=== PATIENT | female | born 1950 | race Caucasian/White ===

== ENCOUNTER 2016-07-05 10:37 | Inpatient (IN) | payer BC ==
[~2016-07-05] VITALS: Ht 152.4 cm; Wt 83.5 kg
[2016-07-05] MEDS ORDERED: PRD/25 PO (11:33)
[2016-07-05] MEDS ORDERED: ACETCHW7 PO (11:33)
--- NOTE | 2016-07-05 12:03 | EMERGENCY ROOM VISIT NOTE ---
History Report prepared by Samina: Kavin Ott Under the Supervision of: Dr. Pedro Valdez M.D. First contact with patient: 11:49 Chief Complaint: LEG PAIN,LEG INJURY Stated Complaint: LEG PAIN,FALL History of Present Illness The patient is a 65 year old female who presents to the Emergency Room with complaints of worsening swelling of the left lower extremity for the past three days. The leg is also painful and erythematous. The patient spent six hours in a car four days ago. The patient has also been short of breath. The patient has had baseline swelling of her bilateral lower extremities for a while. She has a history of brain cancer. The patient no longer takes most of her medications for cancer except for Prednisone. Source of History: patient Onset: three days Position: leg (left) Quality: other (swelling) Timing: worsening Associated Symptoms: + SOB Review of Systems All systems have been listed, reviewed, and are negative other than those previously mentioned. Please see Additional Medical History Sheet. Past Medical & Surgical Medical Problems: (1) Brain cancer (2) DVT (deep venous thrombosis) Family History Patient reports no known family medical history. Social History Smoking Status: Former Smoker Housing Status: lives with family Current/Historical Medications Scheduled Prednisone (Prednisone), 1 TAB PO DAILY Miscellaneous Medications Acetaminophen (Tylenol), 80 MG PO Allergies Coded Allergies: Naproxen (Verified Allergy, Unknown, hives, 07/05/16) Physical Exam Vital Signs Date Time Temp Pulse Resp B/P Pulse Ox O2 Delivery O2 Flow Rate FiO2 07/05/16 14:39 94 114/83 94 Room Air 07/05/16 12:47 36.9 93 110/80 94 Room Air 07/05/16 10:41 36.7 110 18 116/83 95 Room Air Physical Exam GENERAL: Patient awake, alert, oriented x 3. Patient follows commands. Patient does not appear toxic. Patient is adequately hydrated and well- nourished. SKIN: No erythema, pallor, cyanosis or rash HEENT: Well-healed scar over right side of head, pupils equal, reactive to light and accommodation. LUNGS: Clear to auscultation. No wheezes, no rales, no rhonchi. HEART: No murmurs. No gallops. No rubs ABDOMEN: No masses, no rebound, no hepatomegaly or splenomegaly. Obese, soft, nontender. EXTREMITIES: Bilateral femoral pulses noted. Marked edema of the left leg from the thigh down to the foot, no palpable pedal pulse on the left, slight erythema to the left, not cool to touch. NEUROLOGIC: Cranial nerves II-XII within normal limits. No gross motor sensory function deficits. Medical Decision & Procedures ER Provider Diagnostic Interpretation: X-ray results as stated below per my interpretation and radiologist interpretation. Other radiology results as stated below per my review and radiologist interpretation: CHEST 2 VIEWS ROUTINE CLINICAL HISTORY: Suspected deep venous thrombus. Left leg pain and swelling. COMPARISON STUDY: No previous studies for comparison. FINDINGS: Lung volumes are normal. Linear left basilar opacity is suggestive of atelectasis or scarring. There is mild cardiomegaly without evidence of pulmonary edema. No consolidation is present. IMPRESSION: 1. No acute findings. 2. Mild cardiomegaly. 3. Linear left basilar opacity suggestive of atelectasis. Electronically signed by: Maximiliano Dawn M.D. 07/05/2016 1:16 PM Dictated Date/Time: 07/05/2016 1:15 PM LEFT LOWER EXTREMITY VENOUS DOPPLER CLINICAL HISTORY: Left leg pain and swelling. Suspect deep venous thrombus. COMPARISON STUDY: No previous studies for comparison. TECHNIQUE: Sonography of the deep venous system of the left lower extremity was performed. Compression and augmentation were evaluated. FINDINGS: There is extensive occlusive thrombus within the left common femoral, superficial femoral, popliteal, posterior tibial, peroneal and anterior tibial veins. There is superficial thrombus within the left greater saphenous. The vessels are expanded. IMPRESSION: Extensive deep venous thrombus throughout the left lower extremity. Electronically signed by: Maximiliano Dawn M.D. 07/05/2016 1:56 PM Dictated Date/Time: 07/05/2016 1:55 PM Laboratory Results 07/05/16 12:30 Red Blood Count 3.91, Mean Corpuscular Volume 90.8, Mean Corpuscular Hemoglobin 32.5, Mean Corpuscular Hemoglobin Concent 35.8, Mean Platelet Volume 9.2, Neutrophils (%) (Auto) 90.3, Lymphocytes (%) (Auto) 5.4, Monocytes (%) (Auto) 2.9, Eosinophils (%) (Auto) 0.0, Basophils (%) (Auto) 0.1, Neutrophils # (Auto) 7.48, Lymphocytes # (Auto) 0.45, Monocytes # (Auto) 0.24, Eosinophils # (Auto) 0.00, Basophils # (Auto) 0.01 07/05/16 12:30 Test 07/05/16 12:30 White Blood Count 8.29 K/uL (4.8-10.8) Red Blood Count 3.91 M/uL (4.2-5.4) Hemoglobin 12.7 g/dL (12.0-16.0) Hematocrit 35.5 % (37-47) Mean Corpuscular Volume 90.8 fL (80-100) Mean Corpuscular Hemoglobin 32.5 pg (25-34) Mean Corpuscular Hemoglobin Concent 35.8 g/dl (32-36) Platelet Count 74 K/uL (130-400) Mean Platelet Volume 9.2 fL (7.4-10.4) Neutrophils (%) (Auto) 90.3 % Lymphocytes (%) (Auto) 5.4 % Monocytes (%) (Auto) 2.9 % Eosinophils (%) (Auto) 0.0 % Basophils (%) (Auto) 0.1 % Neutrophils # (Auto) 7.48 K/uL (1.4-6.5) Lymphocytes # (Auto) 0.45 K/uL (1.2-3.4) Monocytes # (Auto) 0.24 K/uL (0.11-0.59) Eosinophils # (Auto) 0.00 K/uL (0-0.5) Basophils # (Auto) 0.01 K/uL (0-0.2) RDW Standard Deviation 53.1 fL (36.4-46.3) RDW Coefficient of Variation 16.7 % (11.5-14.5) Immature Granulocyte % (Auto) 1.3 % Immature Granulocyte # (Auto) 0.11 K/uL (0.00-0.02) Nucleated RBC Absolute Count (auto) 0.03 K/uL (0-0) Nucleated Red Blood Cells % 0.4 % Platelet Estimate DECREASED Prothrombin Time 11.7 SECONDS (9.0-12.0) Prothromb Time International Ratio 1.1 (0.9-1.1) Activated Partial Thromboplast Time 20.9 SECONDS (21.0-31.0) Partial Thromboplastin Ratio 0.8 Anion Gap 10.0 mmol/L (3-11) Est Creatinine Clear Calc Drug Dose 88.9 ml/min Estimated GFR () 113.5 Estimated GFR (Non- 98.0 BUN/Creatinine Ratio 44.2 (10-20) Calcium Level 8.4 mg/dl (8.5-10.1) Total Bilirubin 0.7 mg/dl (0.2-1) Aspartate Amino Transf (AST/SGOT) 27 U/L (15-37) Alanine Aminotransferase (ALT/SGPT) 112 U/L (12-78) Alkaline Phosphatase 57 U/L (45-117) Troponin I 0.137 ng/ml (0-0.045) Total Protein 5.8 gm/dl (6.4-8.2) Albumin 2.6 gm/dl (3.4-5.0) Globulin 3.2 gm/dl (2.5-4.0) Albumin/Globulin Ratio 0.8 (0.9-2) Laboratory results as stated above per my review. Medications Administered Medications (Trade) Dose Ordered Sig/Keyur Route Start Time Stop Time Status Last Admin Dose Admin Heparin Sodium/ Dextrose 1 ea NOW STAT N/A 07/05/16 14:35 07/05/16 14:38 DC 07/05/16 14:59 1 EA Heparin Sodium (Porcine) 4000 unit 4,000 unit ONE ONCE IV 07/05/16 15:00 07/05/16 15:01 DC 07/05/16 14:57 4,000 UNIT Heparin Sodium/ Dextrose (Heparin 25,000 Unit/500ml D5W) 500 ml @ 20 mls/hr Q24H PRN IV 07/05/16 15:00 08/04/16 14:59 07/05/16 14:56 20 MLS/HR ECG Indication: SOB/dyspnea Rate (beats per minute): 93 Rhythm: sinus rhythm Findings: no acute ischemic change, no ectopy ED Course 1152: Past medical records reviewed. The patient was evaluated in room C10. A complete history and physical examination was performed. 1426: Spoke with the patient. She had a brain tumor resection in March 2016. 1429: Discussed the case with Dr. Yu, [facility] Hospitalist. The patient will be evaluated. He recommended placing the patient on Lovenox. 1434: Discussed treatment options with the ED pharmacist. 1435: Heparin Sodium / Dextrose 1 ea. Medical Decision I considered multiple diagnoses including DVT, cellulitis, compartment syndrome , musculoskeletal pain, CHF, arterial occlusion. The patient is here with swelling and pain of her left leg. The patient recently was in a car for several hours driving from [place]. The patient is a prior history of a brain tumor with resection in March 2016. The patient had radiation and chemotherapy. Multiple labs, EKG and imaging were obtained. The patient has extensive clots in her left leg involving multiple veins. The patient's thrombocytopenic. She' s had recent radiation and chemotherapy. The patient's troponin is elevated. The patient needs to be anticoagulated but will need to be done cautiously due to these factors. I discussed care with the hospitalist who will further evaluate the patient and treat her. The patient does not meet criteria for outpatient treatment of a DVT. After discussing therapeutic options with the ED pharmacist, we elected to start the patient on Heparin rather than Lovenox due to the safety characteristics of the latter. Consults Time Called: 1420 Consulting Physician: Nenita Junior Hospitalist Returned Call: [phone]: Discussed the case with [facility] The patient will be evaluated. Impression Primary Impression: Left leg DVT Additional Impressions: Elevated troponin Thrombocytopenia H/O brain tumor Scribe Attestation The scribe's documentation has been prepared under my direction and personally reviewed by me in its entirety. I confirm that the note above accurately reflects all work, treatment, procedures, and medical decision making performed by me. Departure Information Dispostion Being Evaluated By Hospitalist Referrals No Doctor, Assigned (PCP) Patient Instructions My [facility] Problem Qualifiers Primary Impression: Left leg DVT Affected thrombotic vein of extremity: unspecified lower extremity distal vein Chronicity: acute Qualified Codes: I82.4Z2 - Acute embolism and thrombosis of unspecified deep veins of left distal lower extremity
[2016-07-05 12:58] LABS: INR 1.1 (0.9-1.1); PARTIAL THROMBOPLASTIN RATIO 0.8; PROTHROMBIN TIME (PATIENT) 11.7 SECONDS (9.0-12.0)
[2016-07-05 12:59] LABS: BUN/CREATININE RATIO 44.2 (10-20); CALCIUM 8.4 mg/dl (8.5-10.1); CREATININE 0.57 mg/dl (0.60-1.20)
[2016-07-05 13:05] LABS: BASO % 0.1 %; BASO ABS # 0.01 K/uL (0-0.2); COMPLETE YES; HEMATOCRIT 35.5 % (37-47); IG% 1.3 %; LYMPH % 5.4 %; LYMPH ABS # 0.45 K/uL (1.2-3.4); MEAN CELL VOLUME 90.8 fL (80-100); MEAN CORPUSCULAR HEMOGLOBIN 32.5 pg (25-34); MEAN CORPUSCULAR HGB CONC 35.8 g/dl (32-36); MEAN PLATELET VOLUME 9.2 fL (7.4-10.4); MONO % 2.9 %; NEUT % 90.3 %; PLATELET COUNT 74 K/uL (130-400); PLT ESTIMATE DECREASED; RED BLOOD COUNT 3.91 M/uL (4.2-5.4); WHITE BLOOD COUNT 8.29 K/uL (4.8-10.8)
--- NOTE | 2016-07-05 13:18 | DIAGNOSTIC IMAGING REPORT ---
CHEST 2 VIEWS ROUTINE CLINICAL HISTORY: Suspected deep venous thrombus. Left leg pain and swelling. COMPARISON STUDY: No previous studies for comparison. FINDINGS: Lung volumes are normal. Linear left basilar opacity is suggestive of atelectasis or scarring. There is mild cardiomegaly without evidence of pulmonary edema. No consolidation is present. IMPRESSION: 1. No acute findings. 2. Mild cardiomegaly. 3. Linear left basilar opacity suggestive of atelectasis. Electronically signed by: Maximiliano Dawn M.D. 07/05/2016 1:16 PM Dictated Date/Time: 07/05/2016 1:15 PM
[2016-07-05 13:32] LABS: ALB/GLOB RATIO 0.8 (0.9-2)
--- NOTE | 2016-07-05 13:58 | DIAGNOSTIC IMAGING REPORT ---
LEFT LOWER EXTREMITY VENOUS DOPPLER CLINICAL HISTORY: Left leg pain and swelling. Suspect deep venous thrombus. COMPARISON STUDY: No previous studies for comparison. TECHNIQUE: Sonography of the deep venous system of the left lower extremity was performed. Compression and augmentation were evaluated. FINDINGS: There is extensive occlusive thrombus within the left common femoral, superficial femoral, popliteal, posterior tibial, peroneal and anterior tibial veins. There is superficial thrombus within the left greater saphenous. The vessels are expanded. IMPRESSION: Extensive deep venous thrombus throughout the left lower extremity. Electronically signed by: Maximiliano Dawn M.D. 07/05/2016 1:56 PM Dictated Date/Time: 07/05/2016 1:55 PM
[2016-07-05] MEDS ORDERED: HEPARIN SOD 5000 UNIT/0.5 ML CARP IV ONE (15:00)
[2016-07-05] MEDS ORDERED: HEPARIN 25,000 UNIT/500ML D5W 500 ML IV PRN (15:00)
[2016-07-05] MEDS ORDERED: ACETAMINOPHEN 325 MG TAB PO PRN (15:30)
[2016-07-05] MEDS ORDERED: ONDANSETRON INJ 2 MG/ML 2 ML VIAL IV PRN (15:30)
[2016-07-05] MEDS ORDERED: NITROGLYCERIN 0.4 MG SL PER TAB CHARGE SL PRN (15:30)
[2016-07-05 15:33] VITALS: BP 114/83; PULSE 74; TEMP 36.9; O2SAT 96; Ht 152.4 cm; Wt 83.5 kg
--- NOTE | 2016-07-05 15:53 | History and Physical ---
History & Physical Date & Time of Service: Jul 05, 2016 at 15:22 Chief Complaint: Leg Pain,Fall Primary Care Physician: No Doctor, Assigned History of Present Illness Source: patient 65 y/o female with PMHx of Brain Cancer s/p resection who presents to the ED c/ o LLE swelling x 3 days. Pt reports that 3 days ago she noticed LLE swelling. She tried elevating the leg and decreasing salt intake thinking that she may be retaining fluid however her sxs persisted. This morning she noticed erythema to the LLE and decided to seek further evaluation. She denies any pain unless she is up moving around. Pt does mention that 4 days ago she rode in the car for 6 hours. She is from [place] visiting family in [place]. Pt has a history of Brain Cancer s/p tumor resection in March 2016 followed by chemo and radiation. She recently completed her cancer treatments and has a repeat MRI scheduled for next month back home. Pt denies history of blood clots. Pt denies fever/chills, chest pain, palpitations, SOB, abd pain, N/V, bowel or bladder issues, lightheadedness/dizziness. In the ED, pt is tachy on arrival but saturating well on room air. plt count 74. Trop 0.137. LLE US extensive LLE DVT. EKG: NSR with T wave inversions in inferior and anterolateral leads. Pt is stable and will be admitted for further evaluation. Past Medical/Surgical History Medical Problems: (1) Brain cancer Status: Chronic Surgical Problems: (1) H/O brain surgery Permanent Comment: malignant brain tumor resection March 2016 in [facility] Status: Resolved Family History Patient reports no known family medical history. Social History Smoking Status: Former Smoker (50 pack year history; quit 2011) Alcohol Use: none Drug Use: none Occupational Status: retired Allergies Coded Allergies: Naproxen (Verified Allergy, Unknown, hives, 07/05/16) Home Medications Scheduled Prednisone (Prednisone), 1 TAB PO DAILY Miscellaneous Medications Acetaminophen (Tylenol), 80 MG PO Review of Systems Constitutional: No chills, No fatigue, No fever, No sweats, No weakness Eyes: No worsening of vision ENT: No hearing loss Respiratory: No cough, No shortness of breath Cardiovascular: No chest pain, No claudication, No edema, No palpitations Abdomen: No constipation, No diarrhea, No nausea, No pain, No vomiting Musculoskeletal: + swelling (LLE swelling with assoc erythema ), No calf pain Genitourinary - Female: No dysuria Neurologic: No weakness Psychiatric: No depression symptoms Endocrine: No fatigue Hematologic / Lymphatic: No abnormal bleeding/bruising Integumentary: No new/changing skin lesions Physical Exam Vital Signs Date Time Temp Pulse Resp B/P Pulse Ox O2 Delivery O2 Flow Rate FiO2 07/05/16 14:39 94 114/83 94 Room Air 07/05/16 12:47 36.9 93 110/80 94 Room Air 07/05/16 10:41 36.7 110 18 116/83 95 Room Air General Appearance: WD/WN, no apparent distress, + pertinent finding (Pt is sitting up comfotably in bed ) Head: normocephalic, atraumatic Eyes: normal inspection ENT: hearing grossly normal Neck: supple Respiratory/Chest: chest non-tender, lungs clear, normal breath sounds, no respiratory distress Cardiovascular: regular rate, rhythm, no murmur Abdomen/GI: normal bowel sounds, non tender, soft Back: normal inspection Extremities/Musculoskelatal: no calf tenderness, + pertinent finding ( siginificant LLE swelling extending from ankle to thigh with erythema noted; mild tenderness to palpation ) Neurologic/Psych: alert, normal mood/affect, oriented x 3 Skin: normal color, warm/dry Diagnostics Laboratory Results Results Past 24 Hours Test 07/05/16 12:30 Range/Units White Blood Count 8.29 4.8-10.8 K/uL Red Blood Count 3.91 4.2-5.4 M/uL Hemoglobin 12.7 12.0-16.0 g/dL Hematocrit 35.5 37-47 % Mean Corpuscular Volume 90.8 80-100 fL Mean Corpuscular Hemoglobin 32.5 25-34 pg Mean Corpuscular Hemoglobin Concent 35.8 32-36 g/dl Platelet Count 74 130-400 K/uL Mean Platelet Volume 9.2 7.4-10.4 fL Neutrophils (%) (Auto) 90.3 % Lymphocytes (%) (Auto) 5.4 % Monocytes (%) (Auto) 2.9 % Eosinophils (%) (Auto) 0.0 % Basophils (%) (Auto) 0.1 % Neutrophils # (Auto) 7.48 1.4-6.5 K/uL Lymphocytes # (Auto) 0.45 1.2-3.4 K/uL Monocytes # (Auto) 0.24 0.11-0.59 K/uL Eosinophils # (Auto) 0.00 0-0.5 K/uL Basophils # (Auto) 0.01 0-0.2 K/uL RDW Standard Deviation 53.1 36.4-46.3 fL RDW Coefficient of Variation 16.7 11.5-14.5 % Immature Granulocyte % (Auto) 1.3 % Immature Granulocyte # (Auto) 0.11 0.00-0.02 K/uL Nucleated RBC Absolute Count (auto) 0.03 0-0 K/uL Nucleated Red Blood Cells % 0.4 % Platelet Estimate DECREASED Prothrombin Time 11.7 9.0-12.0 SECONDS Prothromb Time International Ratio 1.1 0.9-1.1 Activated Partial Thromboplast Time 20.9 21.0-31.0 SECONDS Partial Thromboplastin Ratio 0.8 Sodium Level 137 136-145 mmol/L Potassium Level 4.0 3.5-5.1 mmol/L Chloride Level 106 98-107 mmol/L Carbon Dioxide Level 21 21-32 mmol/L Anion Gap 10.0 3-11 mmol/L Blood Urea Nitrogen 25 7-18 mg/dl Creatinine 0.57 0.60-1.20 mg/dl Est Creatinine Clear Calc Drug Dose 88.9 ml/min Estimated GFR () 113.5 Estimated GFR (Non- 98.0 BUN/Creatinine Ratio 44.2 10-20 Random Glucose 106 70-99 mg/dl Calcium Level 8.4 8.5-10.1 mg/dl Total Bilirubin 0.7 0.2-1 mg/dl Aspartate Amino Transf (AST/SGOT) 27 15-37 U/L Alanine Aminotransferase (ALT/SGPT) 112 12-78 U/L Alkaline Phosphatase 57 45-117 U/L Troponin I 0.137 0-0.045 ng/ml Total Protein 5.8 6.4-8.2 gm/dl Albumin 2.6 3.4-5.0 gm/dl Globulin 3.2 2.5-4.0 gm/dl Albumin/Globulin Ratio 0.8 0.9-2 Diagnostic Radiology CXR IMPRESSION: 1. No acute findings. 2. Mild cardiomegaly. 3. Linear left basilar opacity suggestive of atelectasis. LLE US IMPRESSION: 1. No acute findings. 2. Mild cardiomegaly. 3. Linear left basilar opacity suggestive of atelectasis. EKG EKG: NSR at 93 bpm with T wave inversions noted in inferior leads and anterolateral leads; no previous EKG available for comparison Impression Assessment and Plan EXTENSIVE ACUTE LLE DVT pt presents with LLE swelling and erythema -admit to telemetry -RFs include malignancy and recent road trip -LLE US + occlusive thrombosis in L common femoral, popliteal, posterior tibial , peroneal and anterior tibial veins -start heparin drip -consult hematology, Dr. Pate -monitor ELEVATED TROPONIN -Initial trop 0.137; continue to monitor with serial Sharita -EKG NSR with T wave inversions in inferior and anterolateral leads; repeat EKG PRN chest pain and in AM -consider cardio consult only if Sharita trend up -pt currently denies acute coronary sxs THROMBOCYTOPENIA -plt count 74; may be related to recent chemotherapy -monitor with daily labs H/O MALIGNANT BRAIN TUMOR -s/p resection in Mar 2016, chemo and radiation -follows with oncologist in [facility] (home) DVT PROPHYLAXIS -heparin drip CODE STATUS -FULL CODE DISPO -Pt seen in collaboration with Dr. Yu. Please see his addendum for further details. Thanks! ATTENDING NOTE Patient seen & examined at bedside. Reviewed above History/Physical and confirmed all the findings in person. Patient was diagnosed with brain tumor (likely Glioblastoma) and was managed with surgical resection followed by radiation & chemotherapy travelled from [place] to [place] and started noticing increasing swelling, redness and pain in left lower extremity. It has been gradually getting worst. Work up shows extensive DVT. Putting risk/benefit ratio together, at this stage , patient does need anti-coagulation. Noted the elevated Troponin although has no cardiac symptoms so will follow the trend with serial Troponin. She has been started on I/V Heparin drip in ED which is being continued and have requested a Hematology consult for further input. Need to monitor Platelet counts as patient id noted to have thrombocytopenia. Explained rea the patient at length. Patient is FULL CODE. DVT Prophylaxis with I/V Heparin. Patient will be followed by Dr. Quintana starting tomorrow AM Royal Yu MD VTE Prophylaxis VTE Risk Assessment Done? Y/N: Yes Risk Level: High
[2016-07-05 16:00] VITALS: O2SAT 94
[2016-07-05 16:08] VITALS: O2SAT 94
[2016-07-05 16:11] VITALS: BP 121/88; PULSE 91; TEMP 36.8; O2SAT 96
[2016-07-05] MEDS ORDERED: INFLUENZA VIRUS QUAD VACCINE 0.5 ML SYR IM. ONE (18:00)
[2016-07-05] MEDS ORDERED: INFLUENZA ADMINISTRATION CHARGE ONE (18:00)
[2016-07-05 19:44] VITALS: BP 113/89; PULSE 96; TEMP 36.8; O2SAT 94
[2016-07-05 22:01] LABS: PARTIAL THROMBOPLASTIN RATIO 1.7
[2016-07-05] MEDS ORDERED: HEPARIN IV BOLUS 2,000 UNIT in SYRINGE 0 ML IV STA (22:29)
[2016-07-05] MEDS: HEPARIN 25,000 UNIT/500ML D5W 500 ML IV PRN (22:52)
[2016-07-05 23:12] VITALS: BP 123/88; PULSE 92; TEMP 36.9; O2SAT 93
[2016-07-06 04:00] VITALS: BP 117/89; PULSE 96; TEMP 36.8; O2SAT 95
[2016-07-06 06:01] LABS: MEAN CELL VOLUME 91.4 fL (80-100); RED BLOOD COUNT 3.94 M/uL (4.2-5.4)
[2016-07-06 06:07] LABS: MEAN PLATELET VOLUME 9.5 fL (7.4-10.4); PLATELET COUNT 83 K/uL (130-400)
[2016-07-06 06:30] LABS: CALCIUM 8.4 mg/dl (8.5-10.1); CREATININE 0.62 mg/dl (0.60-1.20); POTASSIUM 3.9 mmol/L (3.5-5.1)
[2016-07-06 08:23] VITALS: BP 128/87; PULSE 113; TEMP 36.5; O2SAT 96
[2016-07-06 12:21] VITALS: BP 121/90; PULSE 116; TEMP 36.9; O2SAT 95
[2016-07-06] MEDS ORDERED: NURSING VERBAL MED ORDER ONE (12:30)
[2016-07-06] MEDS ORDERED: OPTIRAY 320 IV PRN (14:45)
[2016-07-06] MEDS: BOOST VANILLA PO SCH ×4 (17:00→19:12)
--- NOTE | 2016-07-06 18:00 | Medical Consult ---
Consultation Date of Consultation: Jul 06, 2016. Attending Physician: Keily Quintana M.D. Reason for Consultation: Management of acute extensive left lower extremity DVT in the setting of recent diagnosis and treatment glioblastoma, recent travel from [place] to [place] History of Present Illness Ms. Chopra is new to the consulting hematology service as the patient lives in [place] and is currently here visiting family in [place], arrived here 5 days ago. She is a 65 yr old female with PMHx of probable glioblastoma s/p resection in March 2016 and adjuvant chemotherapy and radiation. Restaging assessment with brain MRI planned for 07/2016. She presented to the ED for LLE swelling x 4 days. She tried conservative measures of elevation and decreasing salt intake, but her symptom persisted and then yesterday morning she developed erythema of the LLE. She presented to [facility] where acute extensive LLE DVT was diagnosed on a Doppler examination; she was then admitted on a heparin drip. She has no prior history of VTE. She has no family history of VTE. Additional history obtained from the patient at bedside. She states she finished concurrent chemoradiation on 06/29/16. Her Temodar, decradron were both stopped that day. She states she then left this past weekend for [place] from her home in [place] to visit family. A day after arrival, she noted progressive edema of left lower extremity (admits had baseline edema of feet bilaterally). Conservative measures as above did not help. She started with erythema and significant pain at rest and with walking of the left leg yesterday. She states her pain is adequately controlled while she is hospitalized here. She does admit dyspnea since yesterday, stating "I breathe heavily." She denies chest pain, palpitations, fever or cough. She admits unsteady gait from prior treatment as well as photophobia, but no vision changes. She does not have headaches per se, but will get twinges of pain on the right side of her head when GBM was resected, site radiated. She admits a good appetite and denies nausea. Past Medical/Surgical History Medical Problems: (1) Elevated troponin Status: Acute (2) H/O brain tumor Status: Acute (3) Left leg DVT Status: Acute (4) Thrombocytopenia Status: Acute Family History Patient reports no known family medical history. Social History Smoking Status: Former Smoker (50 pack year history; quit 2011) Alcohol Use: none Drug Use: none Housing Status: lives with family Occupation Status: retired Allergies Coded Allergies: Naproxen (Verified Allergy, Unknown, hives, 07/05/16) Current Inpatient Medications Current Inpatient Medications Medications (Trade) Dose Ordered Sig/Keyur Route Start Time Stop Time Status Last Admin Dose Admin Acetaminophen (Tylenol Tab) 650 mg Q4H PRN PO 07/05/16 15:30 08/04/16 15:29 Ondansetron HCl (Zofran Inj) 4 mg Q6H PRN IV 07/05/16 15:30 08/04/16 15:29 Nitroglycerin 0.4 mg 0.4 mg UD PRN SL 07/05/16 15:30 08/04/16 15:29 Heparin Sodium/ Dextrose (Heparin 25,000 Unit/500ml D5W) 500 ml @ 22 mls/hr [id number] PRN IV 07/05/16 16:00 08/04/16 15:59 07/05/16 22:52 22 MLS/HR Review of Systems Constitutional: No chills, No fever, No sweats Eyes: + problem reported (photophobia), No worsening of vision Respiratory: + shortness of breath, No cough, No sputum, No wheezing Cardiovascular: No chest pain, No palpitations Abdomen: No constipation, No diarrhea, No nausea, No pain, No vomiting Neurologic: + balance problems, No vertigo Hematologic / Lymphatic: + clotting problems Physical Exam Date Time Temp Pulse Resp B/P Pulse Ox O2 Delivery O2 Flow Rate FiO2 07/06/16 08:00 Room Air 07/06/16 04:00 Room Air 07/06/16 04:00 36.8 96 22 117/89 95 Room Air 07/05/16 23:59 Room Air 07/05/16 23:12 36.9 92 24 123/88 93 Room Air 07/05/16 19:44 36.8 96 24 113/89 94 Room Air 07/05/16 19:41 Room Air 07/05/16 16:11 36.8 91 20 121/88 96 Room Air 07/05/16 16:08 36.9 94 18 130/92 94 07/05/16 16:00 94 Room Air 07/05/16 15:40 94 130/92 94 Room Air 07/05/16 15:33 36.9 74 18 114/83 96 Room Air 07/05/16 14:39 94 114/83 94 Room Air 07/05/16 12:47 36.9 93 110/80 94 Room Air 07/05/16 10:41 36.7 110 18 116/83 95 Room Air General Appearance: WD/WN, no apparent distress Eyes: normal inspection, EOMI ENT: hearing grossly normal Respiratory/Chest: lungs clear, normal breath sounds, no respiratory distress, no accessory muscle use Cardiovascular: + tachycardia Abdomen/GI: normal bowel sounds, non tender, soft, no organomegaly Extremities/Musculoskelatal: + pertinent finding (edema of left lower extremity from foot to thigh, mild erythema, pain to palpation; RLE without edema or erythema) Neurologic/Psych: alert, oriented x 3 Skin: warm/dry, no rash Laboratory Results 07/05/16 12:30 Red Blood Count 3.91, Mean Corpuscular Volume 90.8, Mean Corpuscular Hemoglobin 32.5, Mean Corpuscular Hemoglobin Concent 35.8, Mean Platelet Volume 9.2, Neutrophils (%) (Auto) 90.3, Lymphocytes (%) (Auto) 5.4, Monocytes (%) (Auto) 2.9, Eosinophils (%) (Auto) 0.0, Basophils (%) (Auto) 0.1, Neutrophils # (Auto) 7.48, Lymphocytes # (Auto) 0.45, Monocytes # (Auto) 0.24, Eosinophils # (Auto) 0.00, Basophils # (Auto) 0.01 07/06/16 05:54 07/05/16 12:30 07/06/16 05:54 Test 07/05/16 12:30 07/05/16 18:30 07/05/16 21:22 07/06/16 00:30 White Blood Count 8.29 K/uL (4.8-10.8) Red Blood Count 3.91 M/uL (4.2-5.4) Hemoglobin 12.7 g/dL (12.0-16.0) Hematocrit 35.5 % (37-47) Mean Corpuscular Volume 90.8 fL (80-100) Mean Corpuscular Hemoglobin 32.5 pg (25-34) Mean Corpuscular Hemoglobin Concent 35.8 g/dl (32-36) Platelet Count 74 K/uL (130-400) Mean Platelet Volume 9.2 fL (7.4-10.4) Neutrophils (%) (Auto) 90.3 % Lymphocytes (%) (Auto) 5.4 % Monocytes (%) (Auto) 2.9 % Eosinophils (%) (Auto) 0.0 % Basophils (%) (Auto) 0.1 % Neutrophils # (Auto) 7.48 K/uL (1.4-6.5) Lymphocytes # (Auto) 0.45 K/uL (1.2-3.4) Monocytes # (Auto) 0.24 K/uL (0.11-0.59) Eosinophils # (Auto) 0.00 K/uL (0-0.5) Basophils # (Auto) 0.01 K/uL (0-0.2) RDW Standard Deviation 53.1 fL (36.4-46.3) RDW Coefficient of Variation 16.7 % (11.5-14.5) Immature Granulocyte % (Auto) 1.3 % Immature Granulocyte # (Auto) 0.11 K/uL (0.00-0.02) Nucleated RBC Absolute Count (auto) 0.03 K/uL (0-0) Nucleated Red Blood Cells % 0.4 % Platelet Estimate DECREASED Prothrombin Time 11.7 SECONDS (9.0-12.0) Prothromb Time International Ratio 1.1 (0.9-1.1) Activated Partial Thromboplast Time 20.9 SECONDS (21.0-31.0) 42.9 SECONDS (21.0-31.0) Partial Thromboplastin Ratio 0.8 1.7 Anion Gap 10.0 mmol/L (3-11) Est Creatinine Clear Calc Drug Dose 88.9 ml/min Estimated GFR () 113.5 Estimated GFR (Non- 98.0 BUN/Creatinine Ratio 44.2 (10-20) Calcium Level 8.4 mg/dl (8.5-10.1) Total Bilirubin 0.7 mg/dl (0.2-1) Aspartate Amino Transf (AST/SGOT) 27 U/L (15-37) Alanine Aminotransferase (ALT/SGPT) 112 U/L (12-78) Alkaline Phosphatase 57 U/L (45-117) Troponin I 0.137 ng/ml (0-0.045) 0.111 ng/ml (0-0.045) Total Protein 5.8 gm/dl (6.4-8.2) Albumin 2.6 gm/dl (3.4-5.0) Globulin 3.2 gm/dl (2.5-4.0) Albumin/Globulin Ratio 0.8 (0.9-2) Creatine Kinase MB 2.6 ng/ml (0.5-3.6) Creatine Kinase MB Ratio (0-3.0) (0-3.0) Test 07/06/16 00:37 07/06/16 05:54 Creatine Kinase MB 2.1 ng/ml (0.5-3.6) Troponin I 0.116 ng/ml (0-0.045) Red Blood Count 3.94 M/uL (4.2-5.4) Mean Corpuscular Volume 91.4 fL (80-100) Mean Corpuscular Hemoglobin 32.0 pg (25-34) Mean Corpuscular Hemoglobin Concent 35.0 g/dl (32-36) RDW Standard Deviation 54.0 fL (36.4-46.3) RDW Coefficient of Variation 17.0 % (11.5-14.5) Mean Platelet Volume 9.5 fL (7.4-10.4) Activated Partial Thromboplast Time 51.3 SECONDS (21.0-31.0) Partial Thromboplastin Ratio 2.0 Anion Gap 10.0 mmol/L (3-11) Est Creatinine Clear Calc Drug Dose 81.8 ml/min Estimated GFR () 110.4 Estimated GFR (Non- 95.3 BUN/Creatinine Ratio 32.0 (10-20) Calcium Level 8.4 mg/dl (8.5-10.1) Left lower extremity venous Doppler from 07/05/2016: Extensive occlusive thrombus within the left common femoral, superficial femoral, popliteal, posterior tibial, peroneal and anterior tibial veins. Superficial thrombus within the left greater saphenous. Vessels are expanded. Chest x-ray from 07/05/2016: Linear left basilar opacities suggestive of atelectasis or scarring. Mild cardiomegaly without evidence of pulmonary edema. No consolidation present. Assessment & Plan (1) Left leg DVT Status: Acute Assessment & Plan: See attending note below for plan. Dr. Quintana was called with recommendation to proceed with CTA, CT brain w/ and w/o contrast, check B12 , folate today. (2) Thrombocytopenia Status: Acute Assessment & Plan: See attending note below for plan. (3) Brain cancer Status: Chronic Assessment & Plan: See attending note below for plan. Attending note - patient seen and examined and discussed with Arlyn Chavira. Please see her note for details 65 year old female with right frontal GBM initially diagnosed in 03/2016 when she presented with slurred speech and headahces. She is s/p craniotomy/ resection of right frontal lobe lesion 04/13/16. She underwent postoperative radiation therapy concurrent with temodar. She completed treatment on 06/29/16. She lives in [place] but traveled to [place] to visit her family. She states that she usually ambulate with a walker at home but has been tired since RT/temodar. She states that she has been resting alot. She traveled as passenger in a car for 5 and a half to 6 hrs - she states that she was lying down the entire journey and never got out of car or walked around. She states that she noticed significant edema of her left lower extremity and a nonproductive cough and shortness of breath for 4 days. She darrell any chest pain or pleuritic pain or dizziness or headache. She deneis any bleeding or bruising symptoms. She denies any trauma to her leg. She denies any FH of blood clots. Vitals BP 121/90 HR 116 R 20 T 36.9 O2 SAT 95% Gen: well developed female, awake and alert, NAD HEENT: Anicteric, no pallor, well healed scar on right c/p craniotomy Neck:no adenopathy Lungs: CTAB no wheezes or rales or rhonchi CV: S1 S2 Regular, tachycardic at 112 Abd: bowel sounds present soft NT/ND, no guarding or rebounds Ext: +LLE edema, no edema on right Neuro: alert and oriented x 3, grossly no focal finding Skin: no erythema or ecchymoses Venous doppler: extensive DVT in the left common femoral superficial femoral, posterior tibial, peroneal and anterior tibial veins. There is superficial thrombus within the left greater saphenous. Labs: reviewed Impression: 65 year old female with GBM s/p craniotomy in March 2016 and s/p radiation with concurrent temodar completed 1 week ago, now admitted with LLE DVT after long car ride/prolonged immobility. DVT: Agree with heparin protocol with close monitoring of the aPTT and Monitor closely for any bleeding symptoms SOB: check CT chest if can be done when you do the MRI brain. Recommend obtain pulmonary evaluation as well Thrombocytpenia: may be from consumption due to the venous thrombosis. She had recent treatment with temodar/RT but her platelet count per note from her title lawyer recent CBC from 06/26/16 was normal at 277,000. Check B12 folate. Monitor CBC with diff. Platelet count improved today. No diff was done on today's CBC but smear on 07/05/16 reviewed - rare spherocyte rare very rare fragmented cell -1 seen. Her hemoglobin/hematocrit is stable. GBM: recommend check CT scan head with and without contrast. Recommend obtain neurosurgery input. When platelet count is >100,000 and if ok from neurosurgery standpoint at that time, we can transition to lovenox but she would need monitoring with the anticoagulation clinic until she return to [place], and close monitoring of her CBC. I spoke with her title lawyer/oncologist Dr Izquierdo and he agreed with heparin protocol and eventual transition to lovenox. Patient will need to follow up with him upon discharge when she returns to [place] as well. Thank you for allowing us participate in the care of this patient. Please call if questions.
--- NOTE | 2016-07-06 18:22 | DIAGNOSTIC IMAGING REPORT ---
CT SCAN OF THE BRAIN COMBO CLINICAL HISTORY: Brain tumor status post resection. Tumor type and resection date not provided. COMPARISON STUDY: No priors. TECHNIQUE: Axial CT scan of the brain is performed from the vertex to the skull base before and following the IV administration of 116 cc of Optiray 320. Note that interpretation is significantly suboptimal without prior studies for comparison. FINDINGS: Brain parenchyma: There are postoperative changes from right frontal craniotomy with encephalomalacia in the right frontal lobe. This is likely related to the reported history of tumor resection. The resection cavity appears to communicate with the right lateral ventricle. Heterogeneous/minimally complex material is noted within the resection cavity. There is a somewhat hyperdense nodular structure seen along the resection margin on axial image #13 of the unenhanced series which may represent trace hemorrhage. Dural thickening deep to the craniotomy site is likely on a postoperative basis. There is a thin rim of slightly right peripheral enhancement identified along the posterior and medial aspect of the resection cavity on the postcontrast images. This measures up to 4 mm in thickness. There is a questionable remote additional 3 mm focus of enhancement identified in the high right parietal lobe on image #20. There are age-related involutional changes noting mild subcortical and periventricular microangiopathic change. There is no midline shift or evidence of acute territorial ischemia by CT criteria. No extra-axial fluid collection is seen. Ventricles, sulci, cisterns: Prominent secondary to involutional change. Intracranial vasculature: There is minimal atherosclerotic calcification of the cavernous carotid arteries. Calvarium: There are postoperative changes from right frontal craniotomy. No destructive calvarial lesion is seen. Sinuses and mastoids: The visualized paranasal sinuses are clear. The mastoid air cells are well pneumatized. Orbits: The bony orbits are grossly intact. IMPRESSION: 1. There is no evidence of acute territorial ischemia by CT criteria. No midline shift is seen. 2. There are postoperative changes from right frontal craniotomy with associated right frontal encephalomalacia consistent with reported history of tumor resection. 3. There is minimally complex material/debris within the resection cavity, and a 1.5 cm hyperdense nodular focus along the medial border. This may represent trace and age indeterminant hemorrhage/blood products. 4. There is a thin rim of slightly irregular enhancement identified along the resection border, greatest posteriorly and medially. Although this could simply be related to previous surgery/postoperative change, recurrent/residual neoplasm would be impossible to exclude. Correlated with the patient's prior outside imaging examinations. 5. Question an additional 3 mm remote focus of enhancement in the high right parietal lobe. 6. Mild dural thickening deep to the craniotomy site is likely on a postoperative basis. Electronically signed by: Abram Guzman M.D. 07/06/2016 6:20 PM Dictated Date/Time: 07/06/2016 6:09 PM
[2016-07-06] MEDS: HEPARIN 25,000 UNIT/500ML D5W 500 ML IV PRN (18:45)
--- NOTE | 2016-07-06 18:51 | DIAGNOSTIC IMAGING REPORT ---
CT ANGIOGRAM OF THE CHEST CLINICAL HISTORY: Dyspnea. Atypical chest pain. COMPARISON STUDY: Chest radiograph dated 07/05/2016. TECHNIQUE: Following the IV administration of 116 cc of Optiray 320, CT angiogram of the chest was performed from the upper abdomen to the thoracic inlet utilizing the pulmonary embolus protocol. Images are reviewed in the axial, sagittal, and coronal planes. 3-D MIPS images are created and assessed. IV contrast was administered without complication. The examination is significantly degraded by motion artifact. CT DOSE: 1706.07 mGy.cm FINDINGS: Thyroid: Imaged portions of the thyroid gland are normal in size and attenuation. Thoracic aorta: There is mild atherosclerotic calcification of the thoracic aorta, which is normal in caliber and demonstrates standard 3-vessel arch anatomy. No aneurysm or dissection is seen. Pulmonary vasculature: The pulmonary trunk is mildly dilated measuring 3.6 cm in diameter. This suggests pulmonary artery hypertension. Extensive bilateral pulmonary emboli are identified. There is thrombus within the mid right main pulmonary artery extending into the right upper, right middle, and right lower lobar branches. This extends peripherally into segmental and subsegmental branches. There is pulmonary embolus within the distal left main pulmonary artery. This extends into the left upper and left lower lobar branches into the segmental and subsegmental levels. Heart: The heart is mildly enlarged and without pericardial effusion. Lungs and pleural spaces: Evaluation of the lung parenchyma is degraded by motion artifact. Emphysema is noted. There is dependent atelectasis. No airspace consolidation is seen typical for pneumonia. No pleural effusion is identified. There is a 4 mm right apical pulmonary nodule identified on image #245. A calcified granuloma is noted at the left lung base. The trachea and central airways appear clear. Mediastinum: There is no mediastinal lymphadenopathy. Soco: Clear. Axillae: There is no axillary lymphadenopathy. Upper abdomen: The visualized renal parenchyma demonstrates cortical atrophy. A 1.3 cm cyst is partially imaged in the right kidney. A tiny hiatal hernia is observed. Calcified granulomas are noted in the spleen. There is glandular atrophy of the partially imaged pancreas. Skeletal structures: The skeletal structures are osteopenic. No lytic or blastic bony lesions are seen. Arthritic change is seen in the shoulders. A hemangioma is noted in the upper thoracic spine. IMPRESSION: 1. Motion degraded examination. 2. Extensive bilateral pulmonary emboli as above. 3. Cardiomegaly. 4. Emphysema. 5. There is no airspace consolidation or pleural effusion. 6. There is an indeterminant 4 mm right apical pulmonary nodule. This can be followed as per the Fleischner criteria. See below. 7. Additional changes as above. Please refer to below summary of Fleischner criteria recommendations for follow-up of incidental CT nodules (Carlotta Reyes, Guidelines for management of small pulmonary nodules detected on CT scans: A statement from the Fleischner Society, Radiology 237: [phone].) Low Risk Patient: Minimal or no smoking or other known risk factors for malignancy <=4 mm: No follow-up needed. >4-6 mm: Initial follow-up CT at 12 months; if unchanged, no further follow-up. >6-8 mm: Initial follow-up CT at 6-12 months then at 18-24 months if no change. >8 mm: Follow-up CT at \R\3, 9, 24 months, or PET and/or biopsy. High Risk Patient: History of smoking or other known risk factors <=4 mm: Follow-up at 12 months; if unchanged, no further follow-up. >4-6 mm: Initial follow-up CT at 6-12 months then at 18-24 months if no change. >6-8 mm: Initial follow-up CT at 3-6 months then at 9-12 and 24 months if no change. >8 mm: Same as low risk patient. Note: Nodule size measured as average of length and width. Ground glass or partly solid nodules may require longer follow-up to exclude indolent adenocarcinoma. Electronically signed by: bAram Guzman M.D. 07/06/2016 6:49 PM Dictated Date/Time: 07/06/2016 6:40 PM
[2016-07-06 19:22] VITALS: BP 123/82; PULSE 108; TEMP 36.5; O2SAT 95
[2016-07-06] MEDS ORDERED: [UNRECOGNIZED DRUG - CODE] IV (20:45)
--- NOTE | 2016-07-06 20:49 | Discharge Instructions ---
Discharge Instructions Admission Reason for Admission: DVT Discharge Discharge Diagnosis / Problem: EXTENSIVE BILATERAL PULMONARY EMBOLI/LOWER EXT DVT /INTRA CRANIAL TUMOR Discharge Goals Goal(s): Improve disease control Activity Recommendations Activity Limitations: as noted below (BED REST TILL EVALUATED BY PHYSICIAN ) . Instructions / Follow-Up Instructions / Follow-Up TRANSFERRED TO [facility], ICU ACCEPTING PHYSICIAN DR AMARIS LAMB Current Hospital Diet Patient's current hospital diet: Regular Diet Discharge Diet Recommended Diet: Regular Diet Pending Studies Studies pending at discharge: yes ( PER ICU IN [facility], WILL NEED IVC FILTER PLACEMENT ) List of pending studies: IVF FILTER PLACEMENT / ECHO ICU MONITORING NEUROSURGERY EVALUATION Medical Emergencies . Who to Call and When: Medical Emergencies: If at any time you feel your situation is an emergency, please call 911 immediately. . Non-Emergent Contact Non-Emergency issues call your: Hospital Doctor . . "Provider Documentation" section prepared by Keily Quintana. VTE Core Measure Inpt VTE Proph given/why not?: Unfractionated heparin SQ (UNFRACTIONATED HEPARIN IV ), Other Anticoagulation [place] Drug Monitoring Program Search Results: no issues identified
--- NOTE | 2016-07-06 21:35 | Progress Note ---
Internal Med Progress Note Date of Service: Jul 06, 2016. Provider Documentation: SUBJECTIVE: pt denies of any feeling of shortness of breath of feeling of chest heaviness remains tachycardic BP in 120/70 no hypoxia -discussed the finding of CT head and CTA of chest with patient and family members -Brothers /daughter in Law /nephew present at bedside Given the complex nature of her medical condition -Extensive bilat PE with dilated pulmonary trunk 3.6 cm in diameter -suggestive of pulmonary HTN , extensive bilateral emboli /thrombus with in the mid right main pulmonary artery extending into rt upper , rt middle , and rt lower Lobar branches there is PE in distal left main pulm artery , extends into the left upper and left lower branches into segmental and subsegmental levels pt will need to be transferred to Tertiary care -[facility] for further care D/w ICU [place] -accepted in ICU -accepting Vending Supervisor -Dr Dickson OBJECTIVE: Vital Signs-as noted below Exam: General-chronically ill appearing , no apparent distress HEAD: well healed rt craniotomy scar Eyes-sclera non icteric , PERRLA/EOMI ENT-moist oral mucosa , Neck-no tracheal deviation Lungs-diminished, no rales or wheeze Heart-regular , Tachycardic Abdomen-soft, non tender Extremities-left lower ext edema extending to upper thigh , + tenderness , normal exam of rt lower ext Neuro-no focal neurological deficit Lab data as noted below. ASSESSMENT & PLAN: LEFT LOWER EXT EXTENSIVE DVT : pt is visiting family form [place] noted significant swelling of left lower extremity Lower ext USG: FINDINGS: There is extensive occlusive thrombus within the left common femoral, superficial femoral, popliteal, posterior tibial, peroneal and anterior tibial veins. There is superficial thrombus within the left greater saphenous. The vessels are expanded. pt started on IV heparin wt based protocol given extension of DVT /hx of malignancy /Bilat PE -will need IVC filter placement BILATERAL EXTENSIVE PE : CTA of chest : Extensive bilat PE with dilated pulmonary trunk 3.6 cm in diameter -suggestive of pulmonary HTN , extensive bilateral emboli /thrombus with in the mid right main pulmonary artery extending into rt upper , rt middle , and rt lower Lobar branches there is PE in distal left main pulm artery , extends into the left upper and left lower branches into segmental and subsegmental levels cardiomegaly without pericardial effusion ECHO ordered pt remains tachycardic pt will need continued uninterrupted anticoagulation with IV heparin will need IVC filter placement for further progression of lower ext DVT to lungs Heme onc consulted for anticoagulation recommendation appreciate input form Dr Pate- ELEVATED TROPONIN -trop 0.137-> 0.11-0.11 -EKG NSR with marked T wave inversions in inferior and anterolateral leads; possible due to severe PE burden leading to cardiac strain -ECHO ordered anticoagulation with IV Heparin THROMBOCYTOPENIA -plt count 74-> 82 appreciate input form Heme /Onc Thrombocytopenia: may be from consumption due to the extensive venous thrombosis. pt also had recent treatment with Temodar/RT platelet count per note from her laser set up operator - CBC from 06/26/16 was normal at 277,000. CBC but smear on 07/05/16 reviewed - rare spherocyte rare very rare fragmented cell -1 seen. Her hemoglobin/hematocrit is stable. pt will need to continue with IV heparin need to be transitioned to therapeutic Lovenox once Platelet count > 100 K , no bleeding risk will close monitoring of apTT with anticoagulation clinic before return to [place], [place] H/O MALIGNANT BRAIN TUMOR right frontal GBM initially diagnosed in 03/2016 when she presented with slurred speech and headahces. She is s/p craniotomy/resection of right frontal lobe lesion 04/13/16. S he underwent postoperative radiation therapy concurrent with temodar. She completed treatment on 06/29/16. records obtained form Oncology Dr Izquierdo in [place] CT head w/out contrast shows : 1. There are postoperative changes from right frontal craniotomy with associated right frontal encephalomalacia consistent with reported history of tumor resection. 2. There is minimally complex material/debris within the resection cavity, and a 1.5 cm hyperdense nodular focus along the medial border. This may represent trace and age indeterminant hemorrhage/blood products. 3. There is a thin rim of slightly irregular enhancement identified along the resection border, greatest posteriorly and medially. Although this could simply be related to previous surgery/postoperative change, recurrent/residual neoplasm would be impossible to exclude. Correlated with the patient's prior outside imaging examinations. given the active malignancy /residual- intracranial clot -pt remains high risk for intracranial bleed with active anticoagulation [facility] at present does not have any Neurosurgery service D/w Heme onc Dr Pate -pt should be transferred to Tertiary care for further management pt and family updated , in agreement with transfer Pt transferred to [facility] flighted accepted in ICU -accepting linen room houseperson Dr Dickson FULL CODE DVT PROPHYLAXIS IV Heparin DISPOSITION Transfer to [facility] today accepted in ICU for critical care Accepting Physician /Vending Supervisor Dr Dickson Vital Signs: Date Time Temp Pulse Resp B/P Pulse Ox O2 Delivery O2 Flow Rate FiO2 07/06/16 20:00 Room Air 07/06/16 19:22 36.5 108 20 123/82 95 Room Air 07/06/16 16:00 Room Air 07/06/16 12:21 36.9 116 20 121/90 95 Room Air 07/06/16 12:00 Room Air 07/06/16 08:23 36.5 113 20 128/87 96 Room Air 07/06/16 08:00 Room Air 07/06/16 04:00 Room Air 07/06/16 04:00 36.8 96 22 117/89 95 Room Air 07/05/16 23:59 Room Air 07/05/16 23:12 36.9 92 24 123/88 93 Room Air Lab Results: Results Past 24 Hours Test 07/06/16 00:30 07/06/16 00:37 07/06/16 05:54 Range/Units Creatine Kinase MB Ratio 0-3.0 Creatine Kinase MB 2.1 0.5-3.6 ng/ml Troponin I 0.116 0-0.045 ng/ml White Blood Count 6.50 4.8-10.8 K/uL Red Blood Count 3.94 4.2-5.4 M/uL Hemoglobin 12.6 12.0-16.0 g/dL Hematocrit 36.0 37-47 % Mean Corpuscular Volume 91.4 80-100 fL Mean Corpuscular Hemoglobin 32.0 25-34 pg Mean Corpuscular Hemoglobin Concent 35.0 32-36 g/dl RDW Standard Deviation 54.0 36.4-46.3 fL RDW Coefficient of Variation 17.0 11.5-14.5 % Platelet Count 83 130-400 K/uL Mean Platelet Volume 9.5 7.4-10.4 fL Activated Partial Thromboplast Time 51.3 21.0-31.0 SECONDS Partial Thromboplastin Ratio 2.0 Sodium Level 139 136-145 mmol/L Potassium Level 3.9 3.5-5.1 mmol/L Chloride Level 103 98-107 mmol/L Carbon Dioxide Level 26 21-32 mmol/L Anion Gap 10.0 3-11 mmol/L Blood Urea Nitrogen 20 7-18 mg/dl Creatinine 0.62 0.60-1.20 mg/dl Est Creatinine Clear Calc Drug Dose 81.8 ml/min Estimated GFR () 110.4 Estimated GFR (Non- 95.3 BUN/Creatinine Ratio 32.0 10-20 Random Glucose 87 70-99 mg/dl Calcium Level 8.4 8.5-10.1 mg/dl
--- NOTE | 2016-07-06 21:57 | Discharge Summary ---
Discharge Summary Admission Date: Jul 05, 2016 at 15:18 Discharge Date: Jul 06, 2016 Discharge Disposition: Acute care facility ([facility] [place] [place] ) Principal Diagnosis: EXTENSIVE BILATERAL PULMONARY EMBOLI/LOWER EXT DVT /INTRA CRANIAL TUMOR Procedures: CT HEAD COMBO : IMPRESSION: 1. There is no evidence of acute territorial ischemia by CT criteria. No midline shift is seen. 2. There are postoperative changes from right frontal craniotomy with associated right frontal encephalomalacia consistent with reported history of tumor resection. 3. There is minimally complex material/debris within the resection cavity, and a 1.5 cm hyperdense nodular focus along the medial border. This may represent trace and age indeterminant hemorrhage/blood products. 4. There is a thin rim of slightly irregular enhancement identified along the resection border, greatest posteriorly and medially. Although this could simply be related to previous surgery/postoperative change, recurrent/residual neoplasm would be impossible to exclude. Correlated with the patient's prior outside imaging examinations. 5. Question an additional 3 mm remote focus of enhancement in the high right parietal lobe. 6. Mild dural thickening deep to the craniotomy site is likely on a postoperative basis. CTA OF CHEST /PE PROTOCOL Pulmonary vasculature: The pulmonary trunk is mildly dilated measuring 3.6 cm in diameter. This suggests pulmonary artery hypertension. Extensive bilateral pulmonary emboli are identified. There is thrombus within the mid right main pulmonary artery extending into the right upper, right middle, and right lower lobar branches. This extends peripherally into segmental and subsegmental branches. There is pulmonary embolus within the distal left main pulmonary artery. This extends into the left upper and left lower lobar branches into the segmental and subsegmental levels. LOWER EXT ULTRASOUND : FINDINGS: There is extensive occlusive thrombus within the left common femoral, superficial femoral, popliteal, posterior tibial, peroneal and anterior tibial veins. There is superficial thrombus within the left greater saphenous. The vessels are expanded. IMPRESSION: Extensive deep venous thrombus throughout the left lower extremity. Consultations: HEME /ONC -DR PATE Medication Reconciliation New Medications: Heparin Sod/Sod Chloride (Heparin Sodium/Sodium Chl 2-0.9 Unit/ml-%) 1,000 Unit/ 500 [place] 78083 UNITS IV UD for 10 Days IV anticoagulation titration @ 22 ml/hr Continued Medications: Prednisone (Prednisone) 2.5 Mg Tab 1 TAB PO DAILY for 30 Days, #30 TAB 3 Refills Discontinued Medications: Acetaminophen (Tylenol) 80 Mg Chew 80 MG PO, TAB Admission Information HPI (per Admitting provider): 65 y/o female with PMHx of Brain Cancer s/p resection who presents to the ED c/ o LLE swelling x 3 days. Pt reports that 3 days ago she noticed LLE swelling. She tried elevating the leg and decreasing salt intake thinking that she may be retaining fluid however her sxs persisted. This morning she noticed erythema to the LLE and decided to seek further evaluation. She denies any pain unless she is up moving around. Pt does mention that 4 days ago she rode in the car for 6 hours. She is from [place]. Pt has a history of Brain Cancer s/p tumor resection in March 2016 followed by chemo and radiation. She recently completed her cancer treatments and has a repeat MRI scheduled for next month back home. Pt denies history of blood clots. Pt denies fever/chills, chest pain, palpitations, SOB, abd pain, N/V, bowel or bladder issues, lightheadedness/dizziness. In the ED, pt is tachy on arrival but saturating well on room air. plt count 74. Trop 0.137. LLE US extensive LLE DVT. EKG: NSR with T wave inversions in inferior and anterolateral leads. Pt is stable and will be admitted for further evaluation. Physical Exam (per Admitting): General Appearance: WD/WN, no apparent distress, + pertinent finding (Pt is sitting up comfotably in bed ) Head: normocephalic, atraumatic Eyes: normal inspection ENT: hearing grossly normal Neck: supple Respiratory/Chest: chest non-tender, lungs clear, normal breath sounds, no respiratory distress Cardiovascular: regular rate, rhythm, no murmur Abdomen/GI: normal bowel sounds, non tender, soft Back: normal inspection Extremities/Musculoskelatal: no calf tenderness, + pertinent finding ( siginificant LLE swelling extending from ankle to thigh with erythema noted; mild tenderness to palpation ) Neurologic/Psych: alert, normal mood/affect, oriented x 3 Skin: normal color, warm/dry Hospital Course LEFT LOWER EXT EXTENSIVE DVT : pt is visiting family form [facility] [place] noted significant swelling of left lower extremity Lower ext USG: FINDINGS: There is extensive occlusive thrombus within the left common femoral, superficial femoral, popliteal, posterior tibial, peroneal and anterior tibial veins. There is superficial thrombus within the left greater saphenous. The vessels are expanded. pt started on IV heparin wt based protocol given extension of DVT /hx of malignancy /Bilat PE -will need IVC filter placement BILATERAL EXTENSIVE PE : CTA of chest : Extensive bilat PE with dilated pulmonary trunk 3.6 cm in diameter -suggestive of pulmonary HTN , extensive bilateral emboli /thrombus with in the mid right main pulmonary artery extending into rt upper , rt middle , and rt lower Lobar branches there is PE in distal left main pulm artery , extends into the left upper and left lower branches into segmental and subsegmental levels cardiomegaly without pericardial effusion ECHO ordered pt remains tachycardic pt will need continued uninterrupted anticoagulation with IV heparin will need IVC filter placement for further progression of lower ext DVT to lungs Heme onc consulted for anticoagulation recommendation appreciate input form Dr Pate- ELEVATED TROPONIN -trop 0.137-> 0.11-0.11 -EKG NSR with marked T wave inversions in inferior and anterolateral leads; possible due to severe PE burden leading to cardiac strain -ECHO ordered anticoagulation with IV Heparin THROMBOCYTOPENIA -plt count 74-> 82 appreciate input form Heme /Onc Thrombocytopenia: may be from consumption due to the extensive venous thrombosis. pt also had recent treatment with Temodar/RT platelet count per note from her business team leader - CBC from 06/26/16 was normal at 277,000. CBC but smear on 07/05/16 reviewed - rare spherocyte rare very rare fragmented cell -1 seen. Her hemoglobin/hematocrit is stable. pt will need to continue with IV heparin need to be transitioned to therapeutic Lovenox once Platelet count > 100 K , no bleeding risk will close monitoring of apTT with anticoagulation clinic before return to [place], [place] H/O MALIGNANT BRAIN TUMOR right frontal GBM initially diagnosed in 03/2016 when she presented with slurred speech and headahces. She is s/p craniotomy/resection of right frontal lobe lesion 04/13/16. S he underwent postoperative radiation therapy concurrent with temodar. She completed treatment on 06/29/16. records obtained form Oncology Dr Izquierdo in [place] CT head w/out contrast shows : 1. There are postoperative changes from right frontal craniotomy with associated right frontal encephalomalacia consistent with reported history of tumor resection. 2. There is minimally complex material/debris within the resection cavity, and a 1.5 cm hyperdense nodular focus along the medial border. This may represent trace and age indeterminant hemorrhage/blood products. 3. There is a thin rim of slightly irregular enhancement identified along the resection border, greatest posteriorly and medially. Although this could simply be related to previous surgery/postoperative change, recurrent/residual neoplasm would be impossible to exclude. Correlated with the patient's prior outside imaging examinations. given the active malignancy /residual- intracranial clot -pt remains high risk for intracranial bleed with active anticoagulation [facility] at present does not have any Neurosurgery service D/w Heme onc Dr Pate -pt should be transferred to Tertiary care for further management pt and family updated , in agreement with transfer Pt transferred to [facility] -life flighted accepted in ICU -accepting bullet maker Dr Lamb FULL CODE DVT PROPHYLAXIS IV Heparin DISPOSITION Transfer to [facility] today accepted in ICU for critical care Accepting Physician /Boom Stick Man Dr Lamb Total time spent on discharge = 45 mins This includes examination of the patient, discharge planning, medication reconciliation, and communication with other providers. Discharge Instructions DI: Medical v4 Discharge Instructions Admission Reason for Admission: DVT Discharge Discharge Diagnosis / Problem: EXTENSIVE BILATERAL PULMONARY EMBOLI/LOWER EXT DVT /INTRA CRANIAL TUMOR Discharge Goals Goal(s): Improve disease control Activity Recommendations Activity Limitations: as noted below (BED REST TILL EVALUATED BY PHYSICIAN ) . Instructions / Follow-Up Instructions / Follow-Up [facility], ICU ACCEPTING PHYSICIAN DR AMARIS LAMB Current Hospital Diet Patient's current hospital diet: Regular Diet Discharge Diet Recommended Diet: Regular Diet Pending Studies Studies pending at discharge: yes ( PER ICU IN [facility], WILL NEED IVC FILTER PLACEMENT ) List of pending studies: IVF FILTER PLACEMENT / ECHO ICU MONITORING NEUROSURGERY EVALUATION Medical Emergencies . Who to Call and When: Medical Emergencies: If at any time you feel your situation is an emergency, please call 911 immediately. . Non-Emergent Contact Non-Emergency issues call your: Hospital Doctor . . "Provider Documentation" section prepared by Keily Quintana. VTE Core Measure Inpt VTE Proph given/why not?: Unfractionated heparin SQ (UNFRACTIONATED HEPARIN IV ), Other Anticoagulation [place] Drug Monitoring Program Search Results: no issues identified Additional Copies To Britney Pate MD
--- NOTE | 2016-07-07 08:51 | ECHOCARDIOGRAM REPORT ---
*NOTICE TO RECEIVING CONSTITUTION PARTY AGENCY This information is strictly Confidential and protected under [place] law. [place] law prohibits you from making any further disclosure of this information unless further disclosure is expressly permitted by the written consent of the person to whom it pertains or is authorized by law. A general authorization for the release of medical or other information is not sufficient for this purpose. Hospital accepts no responsibility if the information is made available to any other person, INCLUDING THE PATIENT. Interpretation Summary * Name: SUSAN TERRY Study Date: 07/06/2016 03:37 PM BP: 121/90 mmHg * Patient Location: [facility] HR: 116 * : 1950 (M/d/yyyy) Gender: Female Height: 60 in * Age: 65 yrs Ethnicity: [place] Weight: 184 lb * Referring Physician: LUISITO * Performed By: Chana Kumar RCS * * Reason For Study: Chest Pain * BSA: 1.8 m2 * The study was technically limited. * Grossly normal valvular structure and function. * -- Conclusions -- * The study was technically limited. * The left ventricle is normal in size. * Ejection Fraction = 60-65%. * The right ventricular systolic function is normal. * The left atrial size is normal. * Right atrial size is normal. * Grossly normal valvular structure and function. Procedure Details * A complete two-dimensional transthoracic echocardiogram was performed (2D, M-mode, Doppler and color flow Doppler). * There were technical limitations due to patient'spoor positioning * A contrast injection of Definity was performed to improve assessment of LV function. * Contrast was injected into an intravenous site in the right arm. * One vial of Definity ultrasound contrast was diluted in normal saline to a total volume of 10 ml. A total of '2' ml of solution was administered during imaging. * Lot # [id number] of Definity utilized for procedure. * Expiration date 1N. * The attending nurse who injected the contrast agent was Tanisha Fong RN. Left Ventricle * The left ventricle is normal in size. * There is normal left ventricular wall thickness. * Ejection Fraction = 60-65%. * Left ventricular systolic function is normal. Right Ventricle * The right ventricle is normal in size and function. * There is normal right ventricular wall thickness. * The right ventricular systolic function is normal. Atria * The left atrial size is normal. * Right atrial size is normal. * The interatrial septum is intact with no evidence for an atrial septal defect. Mitral Valve * The mitral valve is normal in structure and function. * There is no mitral valve stenosis. * There is no mitral regurgitation noted. Tricuspid Valve * The tricuspid valve is normal in structure and function. * There is trace tricuspid regurgitation. Aortic Valve * The aortic valve is normal in structure and function. * No aortic regurgitation is present. Pulmonic Valve * The pulmonic valve is normal in structure and function. * There is no pulmonic valvular regurgitation. Great Vessels * The aortic root is normal size. * No obvious dissection could be visualized. * The pulmonary artery is normal size. Pericardium/Pleural * There is no pericardial effusion. MMode 2D Measurements and Calculations IVSd 1.0 cm IVSs 1.2 cm LVIDd 4.0 cm LVIDs 2.8 cm LVPWd 1.0 cm LVPWs 1.3 cm IVS/LVPW 0.98 FS 30.7 % EDV(Teich) 71.7 ml ESV(Teich) 29.5 ml EF(Teich) 58.8 % EDV(cubed) 65.9 ml ESV(cubed) 21.9 ml EF(cubed) 66.7 % % IVS thick 18.4 % % LVPW thick 29.5 % LV mass(C)d 131.7 grams LV mass(C)dI 73.1 grams/m\S\2 LV mass(C)s 107.3 grams LV mass(C)sI 59.6 grams/m\S\2 CO(Teich) 4.6 l/min CI(Teich) 2.5 l/min/m\S\2 SV(Teich) 42.1 ml SI(Teich) 23.4 ml/m\S\2 CO(cubed) 4.8 l/min CI(cubed) 2.7 l/min/m\S\2 SV(cubed) 44.0 ml SI(cubed) 24.4 ml/m\S\2 Ao root diam 3.6 cm Ao root area 10.2 cm\S\2 ACS 1.9 cm LA dimension 2.8 cm LA/Ao 0.77 LVAd ap4 36.1 cm\S\2 LVLd ap4 8.3 cm EDV(MOD-sp4) 130.0 ml LVAs ap4 19.0 cm\S\2 LVLs ap4 7.6 cm ESV(MOD-sp4) 39.0 ml EF(MOD-sp4) 70.0 % LVAd ap2 21.6 cm\S\2 LVLd ap2 7.6 cm EDV(MOD-sp2) 53.0 ml LVAs ap2 14.1 cm\S\2 LVLs ap2 6.3 cm ESV(MOD-sp2) 26.0 ml EF(MOD-sp2) 50.9 % CO(MOD-sp4) 9.9 l/min CI(MOD-sp4) 5.5 l/min/m\S\2 SV(MOD-sp4) 91.0 ml SI(MOD-sp4) 50.5 ml/m\S\2 CO(MOD-sp2) 2.9 l/min CI(MOD-sp2) 1.6 l/min/m\S\2 SV(MOD-sp2) 27.0 ml SI(MOD-sp2) 15.0 ml/m\S\2 Doppler Measurements and Calculations MV E max raad 61.1 cm/sec MV A max raad 94.4 cm/sec MV E/A 0.65 MV P1/2t max rada 69.1 cm/sec MV P1/2t 49.3 msec MVA(P1/2t) 4.5 cm\S\2 MV dec slope 410.3 cm/sec\S\2 MV dec time 0.16 sec Ao V2 max 107.7 cm/sec Ao max PG 4.6 mmHg Ao max PG (full) 0.01 mmHg LV V1 max PG 4.6 mmHg LV V1 max 107.6 cm/sec PA V2 max 88.1 cm/sec PA max PG 3.2 mmHg PI max raad 173.7 cm/sec PI max PG 12.1 mmHg PI dec slope 177.8 cm/sec\S\2 PI P1/2t 286.1 msec
== END 2016-07-06 21:40 | disposition short-term general hospital (02) | DRG 299 ==
LOC: ENRESERVTM → ENRESERVDT → C.EDB 10:40 → C.2E 15:18
PROVIDERS: ADMIT Emergency Medicine; ATTEND Hospitalist
DX: I82.402 Acute embolism and thrombosis of unspecified deep veins of left lower extremity (principal); I26.99 Other pulmonary embolism without acute cor pulmonale; C71.9 Malignant neoplasm of brain, unspecified; D69.6 Thrombocytopenia, unspecified; I27.2 Other secondary pulmonary hypertension; I51.7 Cardiomegaly; R00.0 Tachycardia, unspecified; R60.0 Localized edema; Z87.891 Personal history of nicotine dependence; R79.89 Other specified abnormal findings of blood chemistry; Z79.52 Long term (current) use of systemic steroids; Z79.899 Other long term (current) drug therapy

== ENCOUNTER 2016-07-17 18:16 | Inpatient (IN) | payer BC ==
[~2016-07-17] VITALS: Ht 152.4 cm; Wt 88.1 kg
[~2016-07-17 18:16] MED LIST: ACETCHW7 PO; PRD/25 PO; [UNRECOGNIZED DRUG - CODE] IV
[2016-07-17] MEDS ORDERED: SODIUM CHLORIDE 0.9% 1000ML 1,000 ML IV STA (18:43)
--- NOTE | 2016-07-17 18:52 | EMERGENCY ROOM VISIT NOTE ---
History Report prepared by Samina: Robert Salcedo Under the Supervision of: Dr. Karel Hewitt D.O. First contact with patient: 18:36 Chief Complaint: EDEMA TO EXTREMITY Stated Complaint: LOWER LEG EDEMA, History of Present Illness The patient is a 65 year old female who presents to the Emergency Room with concerns over worsening swelling in her lower extremities. The patient has swelling in her lower extremities at baseline, but it has worsened significantly over the past couple of days. The patient does have a deep vein thrombosis in the left leg, the swelling in the left leg is worse than the swelling in the right. The patient had a surgery on her brain in March of last year, 3 months prior to this visit. She is not on any blood thinners, but she did recently have a filter placed to help protect against clots. The patient notes no other medical problems. She takes nausea medication daily. 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 A total of 10 systems reviewed and were otherwise negative. Past Medical & Surgical Medical Problems: (1) history glioblastoma multiforme (2) History of DVT (deep vein thrombosis) (3) History of pulmonary embolism Surgical Problems: (1) Status post craniotomy (2) Status post insertion of inferior vena caval filter Family History Patient reports no known family medical history. Social History Smoking Status: Former Smoker Drug Use: none Housing Status: lives with family Occupation Status: retired Current/Historical Medications Scheduled Acetaminophen Tab (Tylenol), 650 MG PO PRN UD Dexamethasone (Decadron), 4 MG PO TAPER UD Allergies Coded Allergies: Naproxen (Verified Allergy, Unknown, hives, 07/05/16) Physical Exam Vital Signs Date Time Temp Pulse Resp B/P Pulse Ox O2 Delivery O2 Flow Rate FiO2 07/17/16 20:41 103 18 98/69 99 Room Air 07/17/16 18:42 37.1 103 18 130/80 95 Room Air 07/17/16 18:33 103 Physical Exam GENERAL: Patient is awake, alert, and in no acute distress. Patient is resting comfortably and showing no signs of anxiety EYES: The conjunctivae are clear. The pupils are round and reactive. EARS, NOSE, MOUTH AND THROAT: The nose is without any evidence of any deformity. Mucous membranes are moist tongue is midline NECK: The neck is nontender and supple. RESPIRATORY: Normal respiratory effort is noted there is no evidence of wheezing rhonchi or rales CARDIOVASCULAR: Tachycardiac rate with normal rhythm noted there no murmurs rubs or gallops normal S1 normal S2 GASTROINTESTINAL: The abdomen is soft. Bowel sounds are present in all quadrants. Abdomen is nontender MUSCULOSKELETAL/EXTREMITIES: There is no evidence of gross deformity full range of motion is noted in the hips and shoulders SKIN: There is pitting edema in both lower extremities, left more so than right. There are no signs of cellulitis. There is no obvious evidence of any rash. There are no petechiae, pallor or cyanosis noted. NEUROLOGIC: Patient is awake alert and oriented x3 strength is symmetric patellar reflexes are 2+ bilaterally Medical Decision & Procedures ER Provider Diagnostic Interpretation: X ray results and stated below per my interpretation and radiology interpretation. Other radiology results per my review and radiologist interpretation: CT OF THE HEAD WITHOUT CONTRAST CLINICAL HISTORY: DVT, recent surgery, need to give blood thinners COMPARISON STUDY: Head CT July 06, 2016. CT DOSE: 537.48 mGy.cm TECHNIQUE: Helical axial images of the head were obtained without IV contrast. Automated exposure control was utilized for the study. FINDINGS: There are postsurgical findings consistent with a right frontotemporal craniotomy. The postoperative appearance is unchanged since head CT of November or 2016. A 1.5 cm nodular focus with increased attenuation within the medial aspect of the resection bed, adjacent to the frontal horn of the right lateral ventricle is unchanged since prior exam. The appearance of the resection cavity is unchanged. The sensitivity for detection of residual or recurrent tumor is diminished on this unenhanced exam. The ventricular system is stable. The basilar cisterns are patent. There are no CT findings to suggest acute dural sinus thrombosis or acute territorial infarct. Subtle increased attenuation along the resection margin is unchanged. No significant calvarial abnormalities are present. Visualized portions of the sinuses and mastoid air cells are clear. IMPRESSION: Status post right frontotemporal craniotomy. Stable appearance of the resection cavity since head CT of July 06, 2016 with several subtle areas of increased attenuation. This could reflect calcification. Old blood products are considered less likely. No acute hemorrhage. Decreased sensitivity for detection of residual recurrent tumor on this unenhanced exam. Comparison with earlier postoperative imaging studies would be of benefit. Electronically signed by: Maximiliano Dawn M.D. 07/17/2016 7:29 PM Dictated Date/Time: 07/17/2016 7:19 PM CHEST ONE VIEW PORTABLE CLINICAL HISTORY: Shortness of breath. Respiratory distress. COMPARISON STUDY: Chest CT July 06, 2016. FINDINGS: Lung volumes are normal. Mild left basilar opacity favors atelectasis. No pneumothorax or pleural effusion is present. Mild cardiomegaly is unchanged. There is no evidence of pulmonary edema. Note is made of a new 2.6 cm tubular opacity within the left midlung. IMPRESSION: 1. Nonspecific 2.6 cm nodular focus within the left midlung. Mild left basilar opacity suggestive of atelectasis. 3. Stable mild cardiomegaly. Electronically signed by: Maximiliano Dawn M.D. 07/17/2016 7:18 PM Dictated Date/Time: 07/17/2016 7:13 PM BILATERAL LOWER EXTREMITY VENOUS DOPPLER CLINICAL HISTORY: Lower extremity swelling. History of deep venous thrombus. COMPARISON STUDY: Left lower external venous Doppler July 05, 2016. TECHNIQUE: Sonography of the deep venous system of the bilateral lower extremities was performed. Compression and augmentation were evaluated. FINDINGS: Note is made of occlusive thrombus within the right common femoral, superficial femoral and popliteal veins. There is also suspected thrombus within the right calf vessels which are difficult to assess due to suboptimal penetration. There is thrombus within the right greater saphenous vein. There is also extensive thrombus within the left common femoral, superficial femoral and popliteal veins as well as the left calf veins. The appearance within the left lower extremity is similar to exam of July 05, 2016. IMPRESSION: Extensive deep venous thrombus within the bilateral lower extremities, as described above. Left lower extremity deep venous thrombus is similar to exam of July 05, 2016. Electronically signed by: Maximiliano Dawn M.D. 07/17/2016 7:58 PM Dictated Date/Time: 07/17/2016 7:56 PM Laboratory Results Test 07/17/16 18:45 Prothrombin Time 11.4 SECONDS (9.0-12.0) Prothromb Time International Ratio 1.1 (0.9-1.1) Activated Partial Thromboplast Time 19.9 SECONDS (21.0-31.0) Partial Thromboplastin Ratio 0.8 Total Bilirubin 0.6 mg/dl (0.2-1) Aspartate Amino Transf (AST/SGOT) 23 U/L (15-37) Alanine Aminotransferase (ALT/SGPT) 36 U/L (12-78) Alkaline Phosphatase 68 U/L (45-117) Troponin I < 0.015 ng/ml (0-0.045) Pro-B-Type Natriuretic Peptide 400 pg/ml (0-900) Total Protein 6.3 gm/dl (6.4-8.2) Albumin 2.4 gm/dl (3.4-5.0) Globulin 3.9 gm/dl (2.5-4.0) Albumin/Globulin Ratio 0.6 (0.9-2) Laboratory results per my review. Medications Administered Medications (Trade) Dose Ordered Sig/Keyur Route Start Time Stop Time Status Last Admin Dose Admin Sodium Chloride (Nss 1000ml) 1,000 ml @ 999 mls/hr Q1H1M STAT IV 07/17/16 18:43 07/17/16 19:43 DC 07/17/16 18:43 999 MLS/HR ECG Indication: other (Edema) Rate (beats per minute): 101 Rhythm: sinus tachycardia Findings: nonspecific-ST abn (Inferior), no ectopy Comparison ECG Date: 07/06/2016 Change: no significant change ED Course 1838: The patient was evaluated in room C5. A complete history and physical examination were performed. 1842: Ordered Sodium Chloride 1000 mL @ 999 mL/hr IV. 8: I checked on the patient at this time, she is doing well. 2013: I reevaluated the patient at this time, she is resting comfortably. 2022: I discussed the case with Dr. Cano - [facility] Hospitalist, he will evaluate the patient for further treatment. Medical Decision The patient's history was concerning for swelling and pain in the leg. Differential diagnosis: Etiologies such as DVT, musculoskeletal, infection, joint effusion, trauma, lymphedema, idiopathic, CHF, as well as others were entertained. Nursing notes reviewed. Additional history was obtained from the family members. The patient's documentation and discharge summary from [facility] as reviewed. The patient is a 65-year-old female who presented to the emergency department for an evaluation of lower extremity swelling and pain. The patient was recently diagnosed with a unilateral lower extremity DVT. The patient presents with worsening symptoms at this time. The patient initially was put on anticoagulation when she was admitted to the facility recently this month however she was transferred to [facility] for neurosurgical evaluation because the patient has a history of resected glioblastoma last fall. It was felt that she was not safe to anticoagulate. An IVC filter was placed. The patient was sent home. She returns today with much worsening symptoms and extensive bilateral lower extremity DVTs. I repeated the patient's CAT scan there is no acute hemorrhage but I'm still uncomfortable and unsure if the patient should be placed on anticoagulation. I discussed this case with the on-call [facility] hospitalist group. They've agreed to evaluate the patient in the emergency apartment for further management and disposition. I discussed the patient's laboratory and radiographic studies with her and her family members. They're aware that she still may not be a good candidate for anticoagulation because of her surgical history. Consults Time Called: 2015 Consulting Physician: Dr. Jerome Childress Returned Call: 2022 I discussed the case with Dr. Jerome Childress, he will evaluate the patient for further treatment. Impression Primary Impression: DVT (deep venous thrombosis) Additional Impressions: Lower extremity edema History of pulmonary embolism Status post craniotomy Scribe Attestation The scribe's documentation has been prepared under my direction and personally reviewed by me in its entirety. I confirm that the note above accurately reflects all work, treatment, procedures, and medical decision making performed by me. Departure Information Dispostion Being Evaluated By Hospitalist Referrals No Doctor, Assigned (PCP) Patient Instructions My [facility] Problem Qualifiers
[2016-07-17 19:00] LABS: BASO % 0.2 %; BASO ABS # 0.02 K/uL (0-0.2); COMPLETE YES; HEMATOCRIT 31.5 % (37-47); IG% 2.4 %; LYMPH % 5.2 %; LYMPH ABS # 0.45 K/uL (1.2-3.4); MEAN CELL VOLUME 93.2 fL (80-100); MEAN CORPUSCULAR HEMOGLOBIN 31.7 pg (25-34); MEAN PLATELET VOLUME 9.3 fL (7.4-10.4); MONO % 5.2 %; PLATELET COUNT 147 K/uL (130-400); RED BLOOD COUNT 3.38 M/uL (4.2-5.4)
[2016-07-17 19:12] LABS: INR 1.1 (0.9-1.1); PARTIAL THROMBOPLASTIN RATIO 0.8; PROTHROMBIN TIME (PATIENT) 11.4 SECONDS (9.0-12.0)
[2016-07-17 19:14] LABS: ALT/SGPT 36 U/L (12-78); AST/SGOT 23 U/L (15-37); BLOOD UREA NITROGEN 21 mg/dl (7-18); BUN/CREATININE RATIO 43.4 (10-20); CALCIUM 8.9 mg/dl (8.5-10.1); CARBON DIOXIDE 23 mmol/L (21-32); CHLORIDE 101 mmol/L (98-107); CREATININE 0.48 mg/dl (0.60-1.20); GLUCOSE 111 mg/dl (70-99); POTASSIUM 4.4 mmol/L (3.5-5.1); SODIUM 134 mmol/L (136-145)
[2016-07-17 19:19] LABS: ALB/GLOB RATIO 0.6 (0.9-2); ALKALINE PHOSPHATASE 68 U/L (45-117)
--- NOTE | 2016-07-17 19:19 | DIAGNOSTIC IMAGING REPORT ---
CHEST ONE VIEW PORTABLE CLINICAL HISTORY: Shortness of breath. Respiratory distress. COMPARISON STUDY: Chest CT July 06, 2016. FINDINGS: Lung volumes are normal. Mild left basilar opacity favors atelectasis. No pneumothorax or pleural effusion is present. Mild cardiomegaly is unchanged. There is no evidence of pulmonary edema. Note is made of a new 2.6 cm tubular opacity within the left midlung. IMPRESSION: 1. Nonspecific 2.6 cm nodular focus within the left midlung. Mild left basilar opacity suggestive of atelectasis. 3. Stable mild cardiomegaly. Electronically signed by: Maximiliano Dawn M.D. 07/17/2016 7:18 PM Dictated Date/Time: 07/17/2016 7:13 PM
[2016-07-17] MEDS ORDERED: ACET325T96 PO (19:31)
[2016-07-17] MEDS ORDERED: DXM/4 PO (19:31)
--- NOTE | 2016-07-17 19:31 | DIAGNOSTIC IMAGING REPORT ---
CT OF THE HEAD WITHOUT CONTRAST CLINICAL HISTORY: DVT, recent surgery, need to give blood thinners COMPARISON STUDY: Head CT July 06, 2016. CT DOSE: 537.48 mGy.cm TECHNIQUE: Helical axial images of the head were obtained without IV contrast. Automated exposure control was utilized for the study. FINDINGS: There are postsurgical findings consistent with a right frontotemporal craniotomy. The postoperative appearance is unchanged since head CT of November. A 1.5 cm nodular focus with increased attenuation within the medial aspect of the resection bed, adjacent to the frontal horn of the right lateral ventricle is unchanged since prior exam. The appearance of the resection cavity is unchanged. The sensitivity for detection of residual or recurrent tumor is diminished on this unenhanced exam. The ventricular system is stable. The basilar cisterns are patent. There are no CT findings to suggest acute dural sinus thrombosis or acute territorial infarct. Subtle increased attenuation along the resection margin is unchanged. No significant calvarial abnormalities are present. Visualized portions of the sinuses and mastoid air cells are clear. IMPRESSION: Status post right frontotemporal craniotomy. Stable appearance of the resection cavity since head CT of July 06, 2016 with several subtle areas of increased attenuation. This could reflect calcification. Old blood products are considered less likely. No acute hemorrhage. Decreased sensitivity for detection of residual recurrent tumor on this unenhanced exam. Comparison with earlier postoperative imaging studies would be of benefit. Electronically signed by: Maximiliano Dawn M.D. 07/17/2016 7:29 PM Dictated Date/Time: 07/17/2016 7:19 PM
--- NOTE | 2016-07-17 20:00 | DIAGNOSTIC IMAGING REPORT ---
BILATERAL LOWER EXTREMITY VENOUS DOPPLER CLINICAL HISTORY: Lower extremity swelling. History of deep venous thrombus. COMPARISON STUDY: Left lower external venous Doppler July 05, 2016. TECHNIQUE: Sonography of the deep venous system of the bilateral lower extremities was performed. Compression and augmentation were evaluated. FINDINGS: Note is made of occlusive thrombus within the right common femoral, superficial femoral and popliteal veins. There is also suspected thrombus within the right calf vessels which are difficult to assess due to suboptimal penetration. There is thrombus within the right greater saphenous vein. There is also extensive thrombus within the left common femoral, superficial femoral and popliteal veins as well as the left calf veins. The appearance within the left lower extremity is similar to exam of July 05, 2016. IMPRESSION: Extensive deep venous thrombus within the bilateral lower extremities, as described above. Left lower extremity deep venous thrombus is similar to exam of July 05, 2016. Electronically signed by: Maximiliano Dawn M.D. 07/17/2016 7:58 PM Dictated Date/Time: 07/17/2016 7:56 PM
--- NOTE | 2016-07-17 20:48 | History and Physical ---
History & Physical Date & Time of Service: Jul 17, 2016 at 20:47 . Chief Complaint: pain and swelling of legs . Primary Care Physician: No Doctor, Assigned . History of Present Illness Source: patient, family, hospital records 65 YO female from [place], [place] (near [place]), visiting family that live in the area. Diagnosed with glioblastoma multiforme in March 2016. Resection performed by Dr. Izquierdo. Received chemotherapy and radiation therapy. Admitted to [facility] 07/06/16 with DVT LLE and pulmonary emboli. Patient was initially treated with IV heparin. CT head demonstrated postsurgical changes in the right frontal region as well as some hyperdense foci worrisome for hemorrhage. Transferred to [facility] 07/05/16. Seen there by Neurosurgery; they recommended that patient not receive anticoagulation. Heparin was discontinued and IVC filter was placed. Patient presented to ED this evening with pain and swelling in the right lower extremity that started several days ago and has progressively worsened. Pain involves both the thigh and the calf. It is moderately severe in intensity and does not radiate. She did not take any analgesics at home. No associated chest pain or SOB. She notes a mild right parietal / occipital headache that doesn't cause any significant discomfort. No focal neurologic symptoms. . Past Medical/Surgical History Medical Problems: (1) history glioblastoma multiforme Permanent Comment: s/p resection Mar 2016, s/p chemo + radiation therapy Status: Chronic (2) History of DVT (deep vein thrombosis) Permanent Comment: LLE 07/06/16 Status: Chronic (3) History of pulmonary embolism Permanent Comment: 07/06/16 Status: Chronic Surgical Problems: (1) Status post craniotomy Permanent Comment: resection glioblastoma multiforme Mar 2016. Dr. Izquierdo. [place], [place]. Status: Chronic (2) Status post insertion of inferior vena caval filter Permanent Comment: [facility] June 2016 Status: Chronic . Family History FATHER Abdominal aortic aneurysm MOTHER Cancer BROTHER Hypertension Diabetes mellitus BROTHER Throat cancer BROTHER Throat cancer SISTER Lung cancer Social History Smoking Status: Former Smoker Alcohol Use: none Drug Use: none Occupational Status: retired Allergies Coded Allergies: Naproxen (Verified Allergy, Unknown, hives, 07/05/16) Home Medications Scheduled Acetaminophen Tab (Tylenol), 650 MG PO PRN UD Dexamethasone (Decadron), 4 MG PO TAPER UD Review of Systems Constitutional: No fever, No weight loss Eyes: No diplopia, No worsening of vision ENT: + hearing loss, No nasal symptoms, No sore throat Respiratory: No cough, No wheezing Cardiovascular: + edema, No chest pain Abdomen: No GI bleeding, No diarrhea, No nausea, No pain, No vomiting Musculoskeletal: + calf pain, + swelling, No joint pain, No muscle pain Genitourinary - Female: + problem reported (urinary hesitancy), No dysuria, No hematuria Neurologic: No memory loss, No paralysis, No weakness Endocrine: No excessive thirst, No excessive urination Hematologic / Lymphatic: + abnormal bleeding/bruising, No swollen lymph nodes Integumentary: No new/changing skin lesions, No rash Physical Exam Vital Signs Date Time Temp Pulse Resp B/P Pulse Ox O2 Delivery O2 Flow Rate FiO2 07/17/16 18:42 37.1 103 18 130/80 95 Room Air 07/17/16 18:33 103 General Appearance: WD/WN, no apparent distress Head: normocephalic, + pertinent finding (well-healed right frontoparietal incision without erythema or drainage) Eyes: normal inspection, PERRL, EOMI, sclerae normal, + pertinent finding ( conjunctivae pink) ENT: normal ENT inspection, hearing grossly normal, pharynx normal Neck: supple, no adenopathy, thyroid normal, no JVD, + pertinent finding ( right IJ IV filter insertion site without erythema or drainage) Respiratory/Chest: lungs clear, normal breath sounds, no respiratory distress, no accessory muscle use Cardiovascular: regular rate, rhythm, no gallop, no JVD, no murmur, + pertinent finding (bilateral 3+ lower extremity edema) Abdomen/GI: normal bowel sounds, non tender, soft, no organomegaly Extremities/Musculoskelatal: + calf tenderness (mild, bilateral), + pedal edema (3=4+) Neurologic/Psych: flatwork presser II-XII nml as tested (PERRL, EOMI), alert, normal mood/ affect, oriented x 3 Skin: normal color, warm/dry, no rash Lymphatic: no adenopathy Diagnostics Laboratory Results Results Past 24 Hours Test 07/17/16 18:45 Range/Units White Blood Count 8.60 4.8-10.8 K/uL Red Blood Count 3.38 4.2-5.4 M/uL Hemoglobin 10.7 12.0-16.0 g/dL Hematocrit 31.5 37-47 % Mean Corpuscular Volume 93.2 80-100 fL Mean Corpuscular Hemoglobin 31.7 25-34 pg Mean Corpuscular Hemoglobin Concent 34.0 32-36 g/dl Platelet Count 147 130-400 K/uL Mean Platelet Volume 9.3 7.4-10.4 fL Neutrophils (%) (Auto) 87.0 % Lymphocytes (%) (Auto) 5.2 % Monocytes (%) (Auto) 5.2 % Eosinophils (%) (Auto) 0.0 % Basophils (%) (Auto) 0.2 % Neutrophils # (Auto) 7.47 1.4-6.5 K/uL Lymphocytes # (Auto) 0.45 1.2-3.4 K/uL Monocytes # (Auto) 0.45 0.11-0.59 K/uL Eosinophils # (Auto) 0.00 0-0.5 K/uL Basophils # (Auto) 0.02 0-0.2 K/uL RDW Standard Deviation 56.7 36.4-46.3 fL RDW Coefficient of Variation 16.9 11.5-14.5 % Immature Granulocyte % (Auto) 2.4 % Immature Granulocyte # (Auto) 0.21 0.00-0.02 K/uL Prothrombin Time 11.4 9.0-12.0 SECONDS Prothromb Time International Ratio 1.1 0.9-1.1 Activated Partial Thromboplast Time 19.9 21.0-31.0 SECONDS Partial Thromboplastin Ratio 0.8 Sodium Level 134 136-145 mmol/L Potassium Level 4.4 3.5-5.1 mmol/L Chloride Level 101 98-107 mmol/L Carbon Dioxide Level 23 21-32 mmol/L Anion Gap 10.0 3-11 mmol/L Blood Urea Nitrogen 21 7-18 mg/dl Creatinine 0.48 0.60-1.20 mg/dl Est Creatinine Clear Calc Drug Dose 116.9 ml/min Estimated GFR () 120.1 Estimated GFR (Non- 103.7 BUN/Creatinine Ratio 43.4 10-20 Random Glucose 111 70-99 mg/dl Calcium Level 8.9 8.5-10.1 mg/dl Total Bilirubin 0.6 0.2-1 mg/dl Aspartate Amino Transf (AST/SGOT) 23 15-37 U/L Alanine Aminotransferase (ALT/SGPT) 36 12-78 U/L Alkaline Phosphatase 68 45-117 U/L Troponin I < 0.015 0-0.045 ng/ml Pro-B-Type Natriuretic Peptide 400 0-900 pg/ml Total Protein 6.3 6.4-8.2 gm/dl Albumin 2.4 3.4-5.0 gm/dl Globulin 3.9 2.5-4.0 gm/dl Albumin/Globulin Ratio 0.6 0.9-2 Diagnostic Radiology CHEST ONE VIEW PORTABLE IMPRESSION: 1. Nonspecific 2.6 cm nodular focus within the left midlung. Mild left basilar opacity suggestive of atelectasis. 3. Stable mild cardiomegaly. Electronically signed by: Maximiliano Dawn M.D. 07/17/2016 7:18 PM BILATERAL LOWER EXTREMITY VENOUS DOPPLER CLINICAL HISTORY: Lower extremity swelling. History of deep venous thrombus. IMPRESSION: Extensive deep venous thrombus within the bilateral lower extremities, as described above. Left lower extremity deep venous thrombus is similar to exam of July 05, 2016. Electronically signed by: Maximiliano Dawn M.D. 07/17/2016 7:[address] OF THE HEAD WITHOUT CONTRAST IMPRESSION: Status post right frontotemporal craniotomy. Stable appearance of the resection cavity since head CT of July 06, 2016 with several subtle areas of increased attenuation. This could reflect calcification. Old blood products are considered less likely. No acute hemorrhage. Decreased sensitivity for detection of residual recurrent tumor on this unenhanced exam. Comparison with earlier postoperative imaging studies would be of benefit. Electronically signed by: Maximiliano Dawn M.D. 07/17/2016 7:29 PM . EKG EKG performed at 18:[address] at 101 / minute, inverted T- waves III, aVF. . Impression Assessment and Plan DVT's BILATERAL LOWER EXTREMITIES / RECENT PULMONARY EMBOLISM Bilateral pulmonary emboli and DVT LLE diagnosed 07/05/16. CT demonstrated possible hemorrhage in region of glioblastoma resection. Transferred to [facility] for Neurosurgery consultation and further management. Neurosurgery recommended that patient not be anticoagulated. IVC filter placed. Now with new / extensive DVT in RLE as well as previously noted DVT in LLE. CT head tonight shows postsurgical changes, "subtle areas of increased attenuation," no apparent acute hemorrhage. No need for emergent anticoagulation. Will defer reconsideration of anticoagulation pending consultation with patient' s neurosurgeon in [place]. HISTORY GLIOBLASTOMA MULTIFORME S/P resection 04/12/[address] Izquierdo in [place], [place]. Has follow-up scheduled in about 1 week. ABNORMAL CHEST X-RAY Chest x-ray shows 2.6 cm nodular focus in left midlung. Recent PE. No fever / cough. Possible atelectasis. Will need follow-up imaging. URINARY HESITANCY Check UA. VTE PROPHYLAXIS Anticoagulants contraindicated in light of recent craniotomy and per recommendations from Neurosurgery within last 2 weeks. Mechanical prophylaxis contraindicated in light of acute bilateral DVT's. Ambulate. RESUSCITATION STATUS Discussed with patient. She does not have a living will. She would like resuscitation attempted in the event of a cardiopulmonary arrest if there is a reasonable chance of a meaningful recovery. Therefore, code status = "Level 1" (full resuscitation). DISPOSITION Admit to Med-Surg Unit. Discharge disposition to be determined. Follow-up with providers in [place]. . VTE Prophylaxis VTE Risk Assessment Done? Y/N: Yes Risk Level: High Given or contraindicated: Contraindicated
[2016-07-17] MEDS ORDERED: OXYCODONE HCL IR 5 MG TAB (IMMEDIATE RELEASE) PO PRN (22:15)
[2016-07-17 22:36] VITALS: BP 111/74; PULSE 103; TEMP 36.7; O2SAT 95; Ht 152.4 cm; Wt 88.1 kg
[2016-07-17 22:48] VITALS: BP 111/74; PULSE 103; TEMP 36.7; O2SAT 95
[2016-07-18 01:26] LABS: URINE APPEARANCE CLEAR (CLEAR); URINE BILIRUBIN NEG (NEG); URINE COLOR YELLOW; URINE EPITHELIAL CELL AUTO >30 /lpf (0-5); URINE NITRITE NEG (NEG); URINE PH 5.5 (4.5-7.5); URINE SPECIFIC GRAVITY 1.013 (1.000-1.030); UROBILINOGEN NEG (NEG)
[2016-07-18 01:27] LABS: MANUAL MICROSCOPIC REQUIRED? NO; REVIEW REQ? NO
[2016-07-18] MEDS: OXYCODONE HCL IR 5 MG TAB (IMMEDIATE RELEASE) PO PRN ×3 (02:46→20:24)
[2016-07-18 07:00] VITALS: BP 101/68; PULSE 84; TEMP 36.9; O2SAT 94
[2016-07-18] MEDS: DEXAMETHASONE 4 MG TAB PO SCH (08:29)
--- NOTE | 2016-07-18 13:28 | Clinical Documentation Query ---
CLINICAL DOCUMENTATION QUERY Dr. DIAZ, In your clinical opinion is this patient being managed for: ( X ) acute/subacute pulmonary embolism Pulmonary Embolism is a sub-acute in this case and that is from previous admission earlier this month ( ) Other explanation of clinical findings (Please Explain) ( ) Unable to determine (Please Define) ( ) Need to Discuss ( ) Not Agree The medical record reflects the following clinical findings, treatment, and risk factors. Clinical Indicators: H/P describes pulmonary embolism as recent. Diagnosed on 07/05/16. Treatment: had IVC filter placed Risk Factors: age, brain cancer, extensive DVT's Acute PE "Acute" defines the period of time beginning with the initial diagnosis, up to and including the entire period of time where anticoagulation is administered (3-12 months). Indicators: dyspnea, pleuritic chest pain, tachycardia, anxiety, diaphoresis, cough, rales, rhonchi, hemoptysis, S2, S3 or S4 gallop, cyanosis; CT of chest = concave filling defect ("trailing edge") Treatment: anticoagulants 3-6 months Please clarify and document your clinical opinion in the progress notes and discharge summary. Terms such as "probable", "suspected", "likely", "questionable", "possible", or "still to be ruled out" are acceptable. IF IN AGREEMENT, YOU MUST DOCUMENT ABOVE DIAGNOSTIC STATEMENT IN DAILY PROGRESS NOTES AND DISCHARGE SUMMARY. This document is not part of the patient's record. Thank You, Connie Zepeda, LORENA [phone]
[2016-07-18 15:51] VITALS: BP 97/56; PULSE 99; TEMP 36.8; O2SAT 96
--- NOTE | 2016-07-18 19:08 | Progress Note ---
Internal Med Progress Note Date of Service: Jul 18, 2016. Provider Documentation: SUBJECTIVE: Patient is sitting comfortably in the chair and has her legs elevated. C/O Intermittent pain in the legs but intensity is less overnight. Denies any chest pain/pressure or SOB. NO BM for 2-3 days. Diagnosed with glioblastoma multiforme in March 2016. Resection performed by Dr. Izquierdo. Received chemotherapy and radiation therapy. Admitted to [facility] 07/06/16 with DVT LLE and pulmonary emboli. Patient was initially treated with IV heparin. CT head demonstrated postsurgical changes in the right frontal region as well as some hyperdense foci worrisome for hemorrhage. Transferred to [facility] 07/05/16. Seen there by Neurosurgery; they recommended that patient not receive anticoagulation. Heparin was discontinued and IVC filter was placed. Patient presented to ED on 07/17/2016 with pain and swelling in the right lower extremity that started several days ago and has progressively worsened. Pain involves both the thigh and the calf. It is moderately severe in intensity and does not radiate. She did not take any analgesics at home. No associated chest pain or SOB. She notes a mild right parietal / occipital headache that doesn't cause any significant discomfort. No focal neurologic symptoms. OBJECTIVE: Vital Signs-as noted below Examination: General Appearance: WD/WN, Sitting in chair in no apparent distress Head: normocephalic, well-healed right frontoparietal incision without erythema or drainage. Eyes: normal inspection, PERRL, EOMI, sclerae normal, ENT: normal ENT inspection, hearing grossly normal, pharynx normal Neck: supple, no adenopathy, thyroid normal, no JVD, right IJ IV filter insertion site without erythema or drainage. Respiratory/Chest: lungs clear, normal breath sounds, no respiratory distress, no accessory muscle use Cardiovascular: regular rate, rhythm, no gallop, no JVD, no murmur, bilateral 3 + lower extremity edema. Abdomen/GI: normal bowel sounds, non tender, soft, no organomegaly Extremities/Musculoskeletal: Mild Right calf tenderness & less on left, 3-4 + pedal edema Neurologic/Psych: change management lead II-XII nml as tested (PERRL, EOMI), alert, normal mood/ affect, oriented x 3 Skin: normal color, warm/dry, no rash Lymphatic: no adenopathy Lab data as noted below. ASSESSMENT & PLAN: BILATERAL LOWER EXTREMITY VENOUS DOPPLER CLINICAL HISTORY: Lower extremity swelling. History of deep venous thrombus. FINDINGS: Note is made of occlusive thrombus within the right common femoral, superficial femoral and popliteal veins. There is also suspected thrombus within the right calf vessels which are difficult to assess due to suboptimal penetration. There is thrombus within the right greater saphenous vein. There is also extensive thrombus within the left common femoral, superficial femoral and popliteal veins as well as the left calf veins. The appearance within the left lower extremity is similar to exam of July 05, 2016. IMPRESSION: Extensive deep venous thrombus within the bilateral lower extremities, as described above. Left lower extremity deep venous thrombus is similar to exam of July 05, 2016. DVT's BILATERAL LOWER EXTREMITIES / RECENT PULMONARY EMBOLISM: Bilateral pulmonary emboli (Subacute issue) and DVT LLE diagnosed 07/05/16. CT demonstrated possible hemorrhage in region of glioblastoma resection. Transferred to [facility] for Neurosurgery consultation and further management. Neurosurgery recommended that patient not be anticoagulated. IVC filter placed. Now with new / extensive DVT in RLE as well as previously noted DVT in LLE. CT head tonight shows postsurgical changes, "subtle areas of increased attenuation," no apparent acute hemorrhage. No need for emergent anticoagulation. Will defer reconsideration of anticoagulation pending consultation with patient' s neurosurgeon in [place].Patient has to get the telephone number for me. HISTORY GLIOBLASTOMA MULTIFORME: S/P resection 04/12/[address] Izquierdo in [place], [place]. Has follow-up scheduled in about 1 week. ABNORMAL CHEST X-RAY: Chest x-ray shows 2.6 cm nodular focus in left midlung. -Recent PE. No fever / cough. -Possible atelectasis. -Will need follow-up imaging. -Incentive spirometry URINARY HESITANCY: UA shows no clinically significant finding. VTE PROPHYLAXIS: Anticoagulants contraindicated in light of recent craniotomy and per recommendations from Neurosurgery within last 2 weeks. Mechanical prophylaxis contraindicated in light of acute bilateral DVT's. Encouraged to ambulate as tolerated. RESUSCITATION STATUS: She does not have a living will. FULL CODE She would like resuscitation attempted in the event of a cardiopulmonary arrest if there is a reasonable chance of a meaningful recovery. DISPOSITION: Pending. Follow-up with providers in [place]. Vital Signs: Date Time Temp Pulse Resp B/P Pulse Ox O2 Delivery O2 Flow Rate FiO2 07/18/16 18:52 Room Air 07/18/16 15:51 36.8 99 20 97/56 96 Room Air 07/18/16 08:15 Room Air 07/18/16 07:00 36.9 84 20 101/68 94 Room Air 07/18/16 00:00 Room Air 07/17/16 22:48 36.7 103 20 111/74 95 Room Air 07/17/16 22:36 36.7 103 18 111/74 95 Room Air 07/17/16 21:53 101 18 99/66 96 Room Air 07/17/16 20:41 103 18 98/69 99 Room Air Lab Results: Results Past 24 Hours Test 07/18/16 00:00 Range/Units Urine Color YELLOW Urine Appearance CLEAR CLEAR Urine pH 5.5 4.5-7.5 Urine Specific [place] 1.013 1.000-1.030 Urine Protein NEG NEG Urine Glucose (UA) NEG NEG Urine Ketones NEG NEG Urine Occult Blood NEG NEG Urine Nitrite NEG NEG Urine Bilirubin NEG NEG Urine Urobilinogen NEG NEG Urine Leukocyte Esterase SMALL NEG Urine WBC (Auto) 10-30 0-5 /hpf Urine RBC (Auto) 0-4 0-4 /hpf Urine Hyaline Casts (Auto) 1-5 0-5 /lpf Urine Epithelial Cells (Auto) >30 0-5 /lpf Urine Bacteria (Auto) NEG NEG Microbiology Results 07/18/16 Urine Culture, Received Pending
[2016-07-18] MEDS: DOCUSATE SODIUM 100 MG CAP PO SCH (20:22)
[2016-07-19 00:17] VITALS: BP 101/71; PULSE 96; TEMP 36.7; O2SAT 94
[2016-07-19] MEDS: OXYCODONE HCL IR 5 MG TAB (IMMEDIATE RELEASE) PO PRN (06:36)
[2016-07-19] MEDS: ACETAMINOPHEN 325 MG TAB PO PRN ×2 (06:39→20:04)
[2016-07-19 07:46] VITALS: BP 108/72; PULSE 89; TEMP 36.6; O2SAT 94
[2016-07-19 08:01] LABS: HEMATOCRIT 28.2 % (37-47); MEAN CELL VOLUME 93.7 fL (80-100); MEAN CORPUSCULAR HEMOGLOBIN 32.2 pg (25-34); MEAN CORPUSCULAR HGB CONC 34.4 g/dl (32-36); MEAN PLATELET VOLUME 8.8 fL (7.4-10.4); PLATELET COUNT 126 K/uL (130-400); RED BLOOD COUNT 3.01 M/uL (4.2-5.4); WHITE BLOOD COUNT 5.74 K/uL (4.8-10.8)
[2016-07-19 08:22] LABS: BASO % 0.2 %; BASO ABS # 0.01 K/uL (0-0.2); COMPLETE YES; EOS % 1.7 %; IG% 5.1 %; LYMPH % 10.1 %; LYMPH ABS # 0.58 K/uL (1.2-3.4); MONO % 8.9 %
[2016-07-19 08:37] LABS: BUN/CREATININE RATIO 43.7 (10-20); CALCIUM 8.2 mg/dl (8.5-10.1); CREATININE 0.49 mg/dl (0.60-1.20); POTASSIUM 3.5 mmol/L (3.5-5.1)
[2016-07-19] MEDS: DEXAMETHASONE 4 MG TAB PO SCH (09:50)
[2016-07-19] MEDS: DOCUSATE SODIUM 100 MG CAP PO SCH ×2 (09:50→20:04)
[2016-07-19] MEDS ORDERED: ENOXAPARIN 1 MG/KG SQ SCH (12:30)
[2016-07-19] MEDS: ENOXAPARIN 100 MG/1ML SYR SQ SCH ×2 (13:32→20:05)
[2016-07-19 15:12] VITALS: BP 115/72; PULSE 72; TEMP 36.8; O2SAT 96
--- NOTE | 2016-07-19 18:37 | Progress Note ---
Internal Med Progress Note Date of Service: Jul 19, 2016. Provider Documentation: SUBJECTIVE: Patient is sitting comfortably in the chair and has her legs elevated. C/O Intermittent pain in the legs but intensity is less overnight. Denies any chest pain/pressure or SOB. had small BM last night. Pain in the legs is tolerable. Has been trying to ambulate small distances. Diagnosed with glioblastoma multiforme in March 2016. Resection performed by Dr. Izquierdo. Received chemotherapy and radiation therapy. Admitted to [facility] 07/06/16 with DVT LLE and pulmonary emboli. Patient was initially treated with IV heparin. CT head demonstrated postsurgical changes in the right frontal region as well as some hyperdense foci worrisome for hemorrhage. Transferred to [facility] 07/05/16. Seen there by Neurosurgery; they recommended that patient not receive anticoagulation. Heparin was discontinued and IVC filter was placed. OBJECTIVE: Vital Signs-as noted below Examination: General Appearance: WD/WN, Sitting in chair in no apparent distress Head: normocephalic, well-healed right frontoparietal incision without erythema or drainage. Eyes: normal inspection, PERRL, EOMI, sclerae normal, ENT: normal ENT inspection, hearing grossly normal, pharynx normal Neck: supple, no adenopathy, thyroid normal, no JVD, right IJ IV filter insertion site without erythema or drainage. Respiratory/Chest: lungs clear, normal breath sounds, no respiratory distress, no accessory muscle use Cardiovascular: regular rate, rhythm, no gallop, no JVD, no murmur, bilateral 3 + lower extremity edema. Abdomen/GI: normal bowel sounds, non tender, soft, no organomegaly Extremities/Musculoskeletal: Mild Right calf tenderness & less on left, 3-4 + pedal edema Neurologic/Psych: director of teacher education II-XII nml as tested (PERRL, EOMI), alert, normal mood/ affect, oriented x 3 Skin: normal color, warm/dry, no rash Lymphatic: no adenopathy Lab data as noted below. ASSESSMENT & PLAN: BILATERAL LOWER EXTREMITY VENOUS DOPPLER CLINICAL HISTORY: Lower extremity swelling. History of deep venous thrombus. FINDINGS: Note is made of occlusive thrombus within the right common femoral, superficial femoral and popliteal veins. There is also suspected thrombus within the right calf vessels which are difficult to assess due to suboptimal penetration. There is thrombus within the right greater saphenous vein. There is also extensive thrombus within the left common femoral, superficial femoral and popliteal veins as well as the left calf veins. The appearance within the left lower extremity is similar to exam of July 05, 2016. IMPRESSION: Extensive deep venous thrombus within the bilateral lower extremities, as described above. Left lower extremity deep venous thrombus is similar to exam of July 05, 2016. Acute DVT Right Lower Extremity: Patient has potential hypercoagulable reasons especially malignancy. Clinically & hemodynamically stable. Discussed with her Dr. Izquierdo (Neuro-oncologist) in [place] and he strongly recommended to start patient on full dose Lovenox. -So weight bases Lovenox has been started. Will find out from Insurance regarding coverage and that will dictate discharge planning. Subacute DVT's Left Lower Extremity & Pulmonary Embolism: Bilateral pulmonary emboli (Subacute issue) and DVT LLE diagnosed 07/05/16. CT demonstrated possible hemorrhage in region of glioblastoma resection. Transferred to [facility] for Neurosurgery consultation and further management. Neurosurgery recommended that patient not be anticoagulated. IVC filter placed. Now with new / extensive DVT in RLE as well as previously noted DVT in LLE. -Will continue Lovenox as above. HISTORY GLIOBLASTOMA MULTIFORME: S/P resection 04/12/[address] Izquierdo in [place], [place]. Has follow-up scheduled in about 1 week. ABNORMAL CHEST X-RAY: Chest x-ray shows 2.6 cm nodular focus in left midlung. -Recent PE. No fever / cough. -Possible atelectasis. -Will need follow-up imaging. -Incentive spirometry URINARY HESITANCY: UA shows no clinically significant finding. VTE PROPHYLAXIS: Anticoagulants contraindicated in light of recent craniotomy and per recommendations from Neurosurgery within last 2 weeks. Mechanical prophylaxis contraindicated in light of acute bilateral DVT's. Encouraged to ambulate as tolerated. RESUSCITATION STATUS: She does not have a living will. FULL CODE She would like resuscitation attempted in the event of a cardiopulmonary arrest if there is a reasonable chance of a meaningful recovery. DISPOSITION: Pending once insurance coverage is clarified. Follow-up with providers in [place]. Vital Signs: Date Time Temp Pulse Resp B/P Pulse Ox O2 Delivery O2 Flow Rate FiO2 07/19/16 16:10 Room Air 07/19/16 15:12 36.8 72 18 115/72 96 Room Air 07/19/16 09:20 Room Air 07/19/16 07:46 36.6 89 18 108/72 94 Room Air 07/19/16 00:17 36.7 96 20 101/71 94 Room Air 07/19/16 00:00 Room Air 07/18/16 20:00 Room Air 07/18/16 18:52 Room Air Lab Results: Results Past 24 Hours Test 07/19/16 07:45 Range/Units White Blood Count 5.74 4.8-10.8 K/uL Red Blood Count 3.01 4.2-5.4 M/uL Hemoglobin 9.7 12.0-16.0 g/dL Hematocrit 28.2 37-47 % Mean Corpuscular Volume 93.7 80-100 fL Mean Corpuscular Hemoglobin 32.2 25-34 pg Mean Corpuscular Hemoglobin Concent 34.4 32-36 g/dl Platelet Count 126 130-400 K/uL Mean Platelet Volume 8.8 7.4-10.4 fL Neutrophils (%) (Auto) 74.0 % Lymphocytes (%) (Auto) 10.1 % Monocytes (%) (Auto) 8.9 % Eosinophils (%) (Auto) 1.7 % Basophils (%) (Auto) 0.2 % Neutrophils # (Auto) 4.25 1.4-6.5 K/uL Lymphocytes # (Auto) 0.58 1.2-3.4 K/uL Monocytes # (Auto) 0.51 0.11-0.59 K/uL Eosinophils # (Auto) 0.10 0-0.5 K/uL Basophils # (Auto) 0.01 0-0.2 K/uL RDW Standard Deviation 57.3 36.4-46.3 fL RDW Coefficient of Variation 17.0 11.5-14.5 % Immature Granulocyte % (Auto) 5.1 % Immature Granulocyte # (Auto) 0.29 0.00-0.02 K/uL Nucleated RBC Absolute Count (auto) 0.02 0-0 K/uL Nucleated Red Blood Cells % 0.3 % Sodium Level 137 136-145 mmol/L Potassium Level 3.5 3.5-5.1 mmol/L Chloride Level 104 98-107 mmol/L Carbon Dioxide Level 21 21-32 mmol/L Anion Gap 12.0 3-11 mmol/L Blood Urea Nitrogen 21 7-18 mg/dl Creatinine 0.49 0.60-1.20 mg/dl Est Creatinine Clear Calc Drug Dose 114.5 ml/min Estimated GFR () 119.3 Estimated GFR (Non- 103.0 BUN/Creatinine Ratio 43.7 10-20 Random Glucose 85 70-99 mg/dl Calcium Level 8.2 8.5-10.1 mg/dl
[2016-07-20 00:02] VITALS: BP 109/73; PULSE 91; TEMP 36.6; O2SAT 96
[2016-07-20 06:11] LABS: HEMATOCRIT 30.3 % (37-47); MEAN CELL VOLUME 92.4 fL (80-100); MEAN CORPUSCULAR HEMOGLOBIN 31.1 pg (25-34); MEAN CORPUSCULAR HGB CONC 33.7 g/dl (32-36); MEAN PLATELET VOLUME 8.6 fL (7.4-10.4); PLATELET COUNT 148 K/uL (130-400); RED BLOOD COUNT 3.28 M/uL (4.2-5.4); WHITE BLOOD COUNT 5.71 K/uL (4.8-10.8)
[2016-07-20 06:34] LABS: BASO % 0.2 %; BASO ABS # 0.01 K/uL (0-0.2); COMPLETE YES; EOS % 0.7 %; IG% 5.8 %; LYMPH % 11.4 %; LYMPH ABS # 0.65 K/uL (1.2-3.4); MONO % 6.8 %; NEUT % 75.1 %; POLYCHROMASIA 1+
[2016-07-20 07:51] VITALS: BP 117/78; PULSE 89; TEMP 36.4; O2SAT 96
[2016-07-20] MEDS: ACETAMINOPHEN 325 MG TAB PO PRN (09:18)
[2016-07-20] MEDS: DEXAMETHASONE 4 MG TAB PO SCH (09:19)
[2016-07-20] MEDS: DOCUSATE SODIUM 100 MG CAP PO SCH ×2 (09:20→20:55)
[2016-07-20] MEDS: ENOXAPARIN 100 MG/1ML SYR SQ SCH ×2 (09:20→20:55)
[2016-07-20 15:02] VITALS: BP 106/73; PULSE 109; TEMP 36.5; O2SAT 94
[2016-07-20 16:05] VITALS: O2SAT 94
--- NOTE | 2016-07-20 16:59 | Progress Note ---
Internal Med Progress Note Date of Service: Jul 20, 2016. Provider Documentation: SUBJECTIVE: Patient is sitting comfortably in the chair and has her legs elevated. C/O Intermittent pain in the legs but intensity is less overnight. Denies any chest pain/pressure or SOB. had small BM last night. Pain in the legs is tolerable. Has been trying to ambulate small distances. Diagnosed with glioblastoma multiforme in March 2016. Resection performed by Dr. Izquierdo. Received chemotherapy and radiation therapy. Admitted to [facility] 07/06/16 with DVT LLE and pulmonary emboli. Patient was initially treated with IV heparin. CT head demonstrated postsurgical changes in the right frontal region as well as some hyperdense foci worrisome for hemorrhage. Transferred to [facility] 07/05/16. Seen there by Neurosurgery; they recommended that patient not receive anticoagulation. Heparin was discontinued and IVC filter was placed. OBJECTIVE: Vital Signs-as noted below Examination: General Appearance: WD/WN, Sitting in chair in no apparent distress Head: normocephalic, well-healed right frontoparietal incision without erythema or drainage. Eyes: normal inspection, PERRL, EOMI, sclerae normal, ENT: normal ENT inspection, hearing grossly normal, pharynx normal Neck: supple, no adenopathy, thyroid normal, no JVD, right IJ IV filter insertion site without erythema or drainage. Respiratory/Chest: lungs clear, normal breath sounds, no respiratory distress, no accessory muscle use Cardiovascular: regular rate, rhythm, no gallop, no JVD, no murmur, bilateral 3 + lower extremity edema. Abdomen/GI: normal bowel sounds, non tender, soft, no organomegaly Extremities/Musculoskeletal: Mild Right calf tenderness & less on left, 3-4 + pedal edema Neurologic/Psych: sales and marketing agent II-XII nml as tested (PERRL, EOMI), alert, normal mood/ affect, oriented x 3 Skin: normal color, warm/dry, no rash Lymphatic: no adenopathy Lab data as noted below. ASSESSMENT & PLAN: BILATERAL LOWER EXTREMITY VENOUS DOPPLER CLINICAL HISTORY: Lower extremity swelling. History of deep venous thrombus. FINDINGS: Note is made of occlusive thrombus within the right common femoral, superficial femoral and popliteal veins. There is also suspected thrombus within the right calf vessels which are difficult to assess due to suboptimal penetration. There is thrombus within the right greater saphenous vein. There is also extensive thrombus within the left common femoral, superficial femoral and popliteal veins as well as the left calf veins. The appearance within the left lower extremity is similar to exam of July 05, 2016. IMPRESSION: Extensive deep venous thrombus within the bilateral lower extremities, as described above. Left lower extremity deep venous thrombus is similar to exam of July 05, 2016. Acute DVT Right Lower Extremity: Patient has potential hypercoagulable reasons especially malignancy. Clinically & hemodynamically stable. Discussed with her Dr. Izquierdo (Neuro-oncologist) in [place] and he strongly recommended to start patient on full dose Lovenox. -So weight bases Lovenox has been started. Will find out from Insurance regarding coverage and that will dictate discharge planning. Subacute DVT's Left Lower Extremity & Pulmonary Embolism: Bilateral pulmonary emboli (Subacute issue) and DVT LLE diagnosed 07/05/16. CT demonstrated possible hemorrhage in region of glioblastoma resection. Transferred to [facility] for Neurosurgery consultation and further management. Neurosurgery recommended that patient not be anticoagulated. IVC filter placed. Now with new / extensive DVT in RLE as well as previously noted DVT in LLE. -Will continue Lovenox as above.Struggling with her Insurance to get Lovenox covered. HISTORY GLIOBLASTOMA MULTIFORME: S/P resection 04/12/[address] Izquierdo in [place], [place]. Has follow-up scheduled in about 1 week. ABNORMAL CHEST X-RAY: Chest x-ray shows 2.6 cm nodular focus in left midlung. -Recent PE. No fever / cough. -Possible atelectasis. -Will need follow-up imaging. -Incentive spirometry URINARY HESITANCY: UA shows no clinically significant finding. VTE PROPHYLAXIS: Anticoagulants contraindicated in light of recent craniotomy and per recommendations from Neurosurgery within last 2 weeks. Mechanical prophylaxis contraindicated in light of acute bilateral DVT's. Encouraged to ambulate as tolerated. RESUSCITATION STATUS: She does not have a living will. FULL CODE She would like resuscitation attempted in the event of a cardiopulmonary arrest if there is a reasonable chance of a meaningful recovery. DISPOSITION: Pending once insurance coverage is clarified. Follow-up with providers in [place]. Called her Insurance ([employer]) and have spoken to them regarding medical necessity for Lovenox at this stage. A case has been filed which hopefully will be reviewed by the Business Travel Consultant in 12-24 hours to make a decision. Her ID # [id number] and am waiting to hear from them. Explained to the patient about it. Vital Signs: Date Time Temp Pulse Resp B/P Pulse Ox O2 Delivery O2 Flow Rate FiO2 07/20/16 15:02 36.5 109 18 106/73 94 Room Air 07/20/16 08:00 Room Air 07/20/16 07:51 36.4 89 20 117/78 96 Room Air 07/20/16 00:02 36.6 91 20 109/73 96 Room Air 07/20/16 00:00 Room Air 07/19/16 20:00 Room Air Lab Results: Results Past 24 Hours Test 07/20/16 05:40 Range/Units White Blood Count 5.71 4.8-10.8 K/uL Red Blood Count 3.28 4.2-5.4 M/uL Hemoglobin 10.2 12.0-16.0 g/dL Hematocrit 30.3 37-47 % Mean Corpuscular Volume 92.4 80-100 fL Mean Corpuscular Hemoglobin 31.1 25-34 pg Mean Corpuscular Hemoglobin Concent 33.7 32-36 g/dl Platelet Count 148 130-400 K/uL Mean Platelet Volume 8.6 7.4-10.4 fL Neutrophils (%) (Auto) 75.1 % Lymphocytes (%) (Auto) 11.4 % Monocytes (%) (Auto) 6.8 % Eosinophils (%) (Auto) 0.7 % Basophils (%) (Auto) 0.2 % Neutrophils # (Auto) 4.29 1.4-6.5 K/uL Lymphocytes # (Auto) 0.65 1.2-3.4 K/uL Monocytes # (Auto) 0.39 0.11-0.59 K/uL Eosinophils # (Auto) 0.04 0-0.5 K/uL Basophils # (Auto) 0.01 0-0.2 K/uL RDW Standard Deviation 56.4 36.4-46.3 fL RDW Coefficient of Variation 16.6 11.5-14.5 % Immature Granulocyte % (Auto) 5.8 % Immature Granulocyte # (Auto) 0.33 0.00-0.02 K/uL Nucleated RBC Absolute Count (auto) 0.03 0-0 K/uL Nucleated Red Blood Cells % 0.4 % Polychromasia 1+
[2016-07-21 00:21] VITALS: BP 109/74; PULSE 90; TEMP 36.5; O2SAT 95
[2016-07-21] MEDS: ACETAMINOPHEN 325 MG TAB PO PRN (01:41)
[2016-07-21] MEDS: DOCUSATE SODIUM 100 MG CAP PO SCH (07:58)
[2016-07-21] MEDS: ENOXAPARIN 100 MG/1ML SYR SQ SCH (08:00)
[2016-07-21] MEDS ORDERED: DEXAMETHASONE 4 MG TAB PO SCH (08:00)
[2016-07-21 08:26] VITALS: BP 120/87; PULSE 89; TEMP 36.4; O2SAT 98
[2016-07-21 08:32] LABS: HEMATOCRIT 32.1 % (37-47); MEAN CELL VOLUME 94.7 fL (80-100); MEAN CORPUSCULAR HEMOGLOBIN 31.9 pg (25-34); MEAN CORPUSCULAR HGB CONC 33.6 g/dl (32-36); MEAN PLATELET VOLUME 8.6 fL (7.4-10.4); PLATELET COUNT 184 K/uL (130-400); RED BLOOD COUNT 3.39 M/uL (4.2-5.4); WHITE BLOOD COUNT 5.27 K/uL (4.8-10.8)
[2016-07-21 09:05] LABS: CREATININE 0.52 mg/dl (0.60-1.20)
--- NOTE | 2016-07-21 15:49 | Progress Note ---
Internal Med Progress Note Date of Service: Jul 21, 2016. Provider Documentation: SUBJECTIVE: Patient is sitting comfortably in the chair and has her legs elevated. C/O Intermittent pain in the legs but intensity is less overnight. Denies any chest pain/pressure or SOB. had small BM last night. Pain in the legs is tolerable. Has been trying to ambulate small distances. Diagnosed with glioblastoma multiforme in March 2016. Resection performed by Dr. Izquierdo. Received chemotherapy and radiation therapy. Admitted to [facility] 07/06/16 with DVT LLE and pulmonary emboli. Patient was initially treated with IV heparin. CT head demonstrated postsurgical changes in the right frontal region as well as some hyperdense foci worrisome for hemorrhage. Transferred to [facility] 07/05/16. Seen there by Neurosurgery; they recommended that patient not receive anticoagulation. Heparin was discontinued and IVC filter was placed. OBJECTIVE: Vital Signs-as noted below Examination: General Appearance: WD/WN, Sitting in chair in no apparent distress Head: normocephalic, well-healed right frontoparietal incision without erythema or drainage. Eyes: normal inspection, PERRL, EOMI, sclerae normal, ENT: normal ENT inspection, hearing grossly normal, pharynx normal Neck: supple, no adenopathy, thyroid normal, no JVD, right IJ IV filter insertion site without erythema or drainage. Respiratory/Chest: lungs clear, normal breath sounds, no respiratory distress, no accessory muscle use Cardiovascular: regular rate, rhythm, no gallop, no JVD, no murmur, bilateral 3 + lower extremity edema. 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 ASSESSMENT & PLAN: BILATERAL LOWER EXTREMITY VENOUS DOPPLER CLINICAL HISTORY: Lower extremity swelling. History of deep venous thrombus. FINDINGS: Note is made of occlusive thrombus within the right common femoral, superficial femoral and popliteal veins. There is also suspected thrombus within the right calf vessels which are difficult to assess due to suboptimal penetration. There is thrombus within the right greater saphenous vein. There is also extensive thrombus within the left common femoral, superficial femoral and popliteal veins as well as the left calf veins. The appearance within the left lower extremity is similar to exam of July 05, 2016. IMPRESSION: Extensive deep venous thrombus within the bilateral lower extremities, as described above. Left lower extremity deep venous thrombus is similar to exam of July 05, 2016. Acute DVT Right Lower Extremity: Patient has potential hypercoagulable reasons especially malignancy. Clinically & hemodynamically stable. Discussed with her Dr. Izquierdo (Neuro-oncologist) in [place] and he strongly recommended to start patient on full dose Lovenox. -So weight bases Lovenox has been started. Will find out from Insurance regarding coverage and that will dictate discharge planning. Subacute DVT's Left Lower Extremity & Pulmonary Embolism: Bilateral pulmonary emboli (Subacute issue) and DVT LLE diagnosed 07/05/16. CT demonstrated possible hemorrhage in region of glioblastoma resection. Transferred to [facility] for Neurosurgery consultation and further management. Neurosurgery recommended that patient not be anticoagulated. IVC filter placed. Now with new / extensive DVT in RLE as well as previously noted DVT in LLE. -Will continue Lovenox as above.Struggling with her Insurance to get Lovenox covered. called again and I am told that it is approved. Then checked with pharmacy and they told me that they still can not fill it. HISTORY GLIOBLASTOMA MULTIFORME: S/P resection 04/12/[address] Izquierdo in [place], [place]. Has follow-up scheduled in about 1 week. ABNORMAL CHEST X-RAY: Chest x-ray shows 2.6 cm nodular focus in left midlung. -Recent PE. No fever / cough. -Possible atelectasis. -Will need follow-up imaging. -Incentive spirometry URINARY HESITANCY: UA shows no clinically significant finding. VTE PROPHYLAXIS: Anticoagulants contraindicated in light of recent craniotomy and per recommendations from Neurosurgery within last 2 weeks. Mechanical prophylaxis contraindicated in light of acute bilateral DVT's. Encouraged to ambulate as tolerated. RESUSCITATION STATUS: She does not have a living will. FULL CODE She would like resuscitation attempted in the event of a cardiopulmonary arrest if there is a reasonable chance of a meaningful recovery. DISPOSITION: Pending once insurance coverage is clarified. Follow-up with providers in [place]. Called her Insurance ([employer]) and have spoken to them regarding medical necessity for Lovenox at this stage. A case has been filed which hopefully will be reviewed by the Associate Designer in 12-24 hours to make a decision. Her ID # [id number] and am waiting to hear from them. Explained to the patient about it. Discharge home later today once her pharmacy confirms that the prescription goes through and she will be able to get her Lovenox. Vital Signs: Date Time Temp Pulse Resp B/P Pulse Ox O2 Delivery O2 Flow Rate FiO2 07/21/16 08:26 36.4 89 18 120/87 98 Room Air 07/21/16 08:00 Room Air 07/21/16 00:21 36.5 90 18 109/74 95 Room Air 07/21/16 00:00 Room Air 07/20/16 16:05 94 Room Air Lab Results: Results Past 24 Hours Test 07/21/16 08:20 Range/Units White Blood Count 5.27 4.8-10.8 K/uL Red Blood Count 3.39 4.2-5.4 M/uL Hemoglobin 10.8 12.0-16.0 g/dL Hematocrit 32.1 37-47 % Mean Corpuscular Volume 94.7 80-100 fL Mean Corpuscular Hemoglobin 31.9 25-34 pg Mean Corpuscular Hemoglobin Concent 33.6 32-36 g/dl RDW Standard Deviation 58.4 36.4-46.3 fL RDW Coefficient of Variation 17.2 11.5-14.5 % Platelet Count 184 130-400 K/uL Mean Platelet Volume 8.6 7.4-10.4 fL Creatinine 0.52 0.60-1.20 mg/dl Est Creatinine Clear Calc Drug Dose 107.9 ml/min Estimated GFR () 117.0 Estimated GFR (Non- 101.0
[2016-07-21 15:50] VITALS: BP 124/84; PULSE 115; TEMP 36.4; O2SAT 98
[2016-07-21] MEDS ORDERED: LVNIS100 SQ (16:11)
[2016-07-21] MEDS ORDERED: RXC5 PO (16:11)
[2016-07-21] MEDS ORDERED: CLC100 PO (16:11)
--- NOTE | 2016-07-21 16:13 | Discharge Instructions ---
Discharge Instructions Admission Reason for Admission: DVT Discharge Discharge Diagnosis / Problem: (1) DVT (deep venous thrombosis) VTE Date & Time Date of VTE Diagnosis: Jul 17, 2016 Time of VTE Diagnosis: 17:00 Discharge Goals Goal(s): Decrease discomfort, Improve function, Increase independence, Improve disease control, Improve nutritional status, Learn about illness, Diagnostic testing, Therapeutic intervention Activity Recommendations Activity Limitations: resume your previous activity (As [id number]) Exercise/Sports Limitations: as tolerated Shower/Bathe: no limitations . Instructions / Follow-Up Instructions / Follow-Up Folow up with your PCP and/or Oncologist within one week after discharge. Medication Instructions: Your condition is typically treated with an anticoagulant. Anticoagulants will thin your blood to help prevent new clots. * You should take her medication exactly as directed. * Never skip a dose. * Never take a double dose. If you miss a dose, take it as soon as you remember. Call your Primary Care doctor if you experience any of the following: * Swelling or Pain in your leg * Sudden, continuous pain deep in a muscle * Pain that worsens when you are active or when you stand still for a long time * Chest Pain * Sudden Shortness of Breath * Rapid or pounding heart beat * Fainting * Dizziness * Cough with blood or bloody sputum * Sweating more than normal * Bruises * Heavy or uncontrolled bleeding * Blood in your urine, stool or vomit * Black or tarry stools Caring for Your Self at Home: * Avoid sitting, standing or lying down for long periods without moving your legs and feet * When traveling by car, stop to get out and move around at least once every 3 hours * On long airplane, train or bus rides, get up and move around when possible * If you can't get up, wiggle your toes and tighten your calves to keep your blood moving Follow Up: It is important for you to keep your follow up appointments with your medical provider. Current Hospital Diet Patient's current hospital diet: Regular Diet Discharge Diet Recommended Diet: Regular Diet Pending Studies Studies pending at discharge: no Medical Emergencies . Who to Call and When: Medical Emergencies: If at any time you feel your situation is an emergency, please call 911 immediately. . Non-Emergent Contact Non-Emergency issues call your: Primary Care Provider, Oncologist . . "Provider Documentation" section prepared by Royal Yu. VTE Core Measure Inpt VTE Proph given/why not?: Enoxaparin (Lovenox)SQ, Contraindicated
--- NOTE | 2016-07-21 16:16 | Discharge Summary ---
Discharge Summary Admission Date: Jul 17, 2016 at 20:52 Discharge Date: Jul 21, 2016 Discharge Disposition: Home Principal Diagnosis: Acute DVT Right Lower Extremity Secondary Diagnoses/Problems: Subacute Left Lower Extremity DVT & Pulmonary Embolism Urinary hesitancy History Glioblastoma Procedures: NONE Vaccinations: NONE Consultations: NONE Pending Studies/Follow-Up: Follow up with your PCP/Oncologist in one week after discharge Medication Reconciliation New Medications: Docusate Sodium (Docusate Sodium) 100 Mg Cap 100 MG PO BID PRN for Constipation, #60 CAP Enoxaparin (Enoxaparin Sodium) 100 Mg/Ml Inj 90 MG SQ Q12, #60 EA Oxycodone HCl (Oxycodone HCl) 5 Mg Tab 5 MG PO Q6H PRN for Moderate to severe pain, #20 TAB Continued Medications: Acetaminophen Tab (Tylenol) 325 Mg Tab 650 MG PO PRN UD, TAB Dexamethasone (Decadron) 4 Mg Tab 4 MG PO TAPER UD, TAB TAPER UD, IS ON 1/2 TAB QOD SINCE 07/11/2016 Admission Information HPI (per Admitting provider): 65 YO female from [place], [place] (near [place]), visiting family that live in the area. Diagnosed with glioblastoma multiforme in March 2016. Resection performed by Dr. Izquierdo. Received chemotherapy and radiation therapy. Admitted to [facility] 07/06/16 with DVT LLE and pulmonary emboli. Patient was initially treated with IV heparin. CT head demonstrated postsurgical changes in the right frontal region as well as some hyperdense foci worrisome for hemorrhage. Transferred to [facility] 07/05/16. Seen there by Neurosurgery; they recommended that patient not receive anticoagulation. Heparin was discontinued and IVC filter was placed. Patient presented to ED this evening with pain and swelling in the right lower extremity that started several days ago and has progressively worsened. Pain involves both the thigh and the calf. It is moderately severe in intensity and does not radiate. She did not take any analgesics at home. No associated chest pain or SOB. She notes a mild right parietal / occipital headache that doesn't cause any significant discomfort. No focal neurologic symptoms. . Physical Exam (per Admitting): General Appearance: WD/WN, no apparent distress Head: normocephalic, + pertinent finding Eyes: normal inspection, PERRL, EOMI, sclerae normal, + pertinent finding ENT: normal ENT inspection, hearing grossly normal, pharynx normal Neck: supple, no adenopathy, thyroid normal, no JVD, + pertinent finding Respiratory/Chest: lungs clear, normal breath sounds, no respiratory distress, no accessory muscle use Cardiovascular: regular rate, rhythm, no gallop, no JVD, no murmur, + pertinent finding Abdomen/GI: normal bowel sounds, non tender, soft, no organomegaly Extremities/Musculoskelatal: + calf tenderness, + pedal edema 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 History of deep venous thrombus. FINDINGS: Note is made of occlusive thrombus within the right common femoral, superficial femoral and popliteal veins. There is also suspected thrombus within the right calf vessels which are difficult to assess due to suboptimal penetration. There is thrombus within the right greater saphenous vein. There is also extensive thrombus within the left common femoral, superficial femoral and popliteal veins as well as the left calf veins. The appearance within the left lower extremity is similar to exam of July 05, 2016. IMPRESSION: Extensive deep venous thrombus within the bilateral lower extremities, as described above. Left lower extremity deep venous thrombus is similar to exam of July 05, 2016. Acute DVT Right Lower Extremity: Patient has potential hypercoagulable reasons especially malignancy. Clinically & hemodynamically stable. Discussed with her Dr. Izquierdo (Neuro-oncologist) in [place] and he strongly recommended to start patient on full dose Lovenox. -So weight bases Lovenox has been started. Will find out from Insurance regarding coverage and that will dictate discharge planning. Subacute DVT's Left Lower Extremity & Pulmonary Embolism: Bilateral pulmonary emboli (Subacute issue) and DVT LLE diagnosed 07/05/16. CT demonstrated possible hemorrhage in region of glioblastoma resection. Transferred to [facility] for Neurosurgery consultation and further management. Neurosurgery recommended that patient not be anticoagulated. IVC filter placed. Now with new / extensive DVT in RLE as well as previously noted DVT in LLE. -Will continue Lovenox as above.Struggling with her Insurance to get Lovenox covered. called again and I am told that it is approved. Then checked with pharmacy and they told me that they still can not fill it. HISTORY GLIOBLASTOMA MULTIFORME: S/P resection 04/12/[address] Izquierdo in [place], [place]. Has follow-up scheduled in about 1 week. ABNORMAL CHEST X-RAY: Chest x-ray shows 2.6 cm nodular focus in left midlung. -Recent PE. No fever / cough. -Possible atelectasis. -Will need follow-up imaging. -Incentive spirometry URINARY HESITANCY: UA shows no clinically significant finding. VTE PROPHYLAXIS: Anticoagulants contraindicated in light of recent craniotomy and per recommendations from Neurosurgery within last 2 weeks. Mechanical prophylaxis contraindicated in light of acute bilateral DVT's. Encouraged to ambulate as tolerated. RESUSCITATION STATUS: She does not have a living will. FULL CODE She would like resuscitation attempted in the event of a cardiopulmonary arrest if there is a reasonable chance of a meaningful recovery. DISPOSITION: Pending once insurance coverage is clarified. Follow-up with providers in [place]. Called her Insurance ([employer]) and have spoken to them regarding medical necessity for Lovenox at this stage. A case has been filed which hopefully will be reviewed by the Silo Worker in 12-24 hours to make a decision. Her ID # [id number] and am waiting to hear from them. Explained to the patient about it. Discharge home later today once her pharmacy confirms that the prescription goes through and she will be able to get her Lovenox. Total time spent on discharge = 45 minutes This includes examination of the patient, discharge planning, medication reconciliation, and communication with other providers. Discharge Instructions Discharge Discharge Diagnosis / Problem: (1) DVT (deep venous thrombosis) VTE Date & Time Date of VTE Diagnosis: Jul 17, 2016 Time of VTE Diagnosis: 17:00 Discharge Goals Goal(s): Decrease discomfort, Improve function, Increase independence, Improve disease control, Improve nutritional status, Learn about illness, Diagnostic testing, Therapeutic intervention Activity Recommendations Activity Limitations: resume your previous activity (As Tolerated) Exercise/Sports Limitations: as tolerated Shower/Bathe: no limitations . Instructions / Follow-Up Instructions / Follow-Up Folow up with your PCP and/or Oncologist within one week after discharge.
[2016-07-21 16:46] VITALS: BP 124/84; PULSE 115; TEMP 36.4; O2SAT 98
== END 2016-07-21 17:55 | disposition home or self-care (01) | DRG 299 ==
LOC: ENRESERVDT → ENRESERVTM → EDBD 18:16 → C.EDC 18:17 → C.MS4W 20:52
PROVIDERS: ADMIT Hospitalist; ATTEND Emergency Medicine
DX: I82.403 Acute embolism and thrombosis of unspecified deep veins of lower extremity, bilateral (principal); I26.99 Other pulmonary embolism without acute cor pulmonale; R91.8 Other nonspecific abnormal finding of lung field; R39.11 Hesitancy of micturition; Z86.718 Personal history of other venous thrombosis and embolism; Z85.841 Personal history of malignant neoplasm of brain; Z92.21 Personal history of antineoplastic chemotherapy; Z92.3 Personal history of irradiation; Z87.891 Personal history of nicotine dependence; Z98.890 Other specified postprocedural states; Z82.49 Family history of ischemic heart disease and other diseases of the circulatory system; Z83.3 Family history of diabetes mellitus; Z80.1 Family history of malignant neoplasm of trachea, bronchus and lung; Z80.8 Family history of malignant neoplasm of other organs or systems